=== PATIENT | female | born 1960 | race Two or more races ===

== ENCOUNTER 2019-09-20 11:14 | Inpatient (IN) ==
[2019-09-20] MEDS ORDERED: ASCORBIC ACID INJ MULTI-DOSE VIAL IM SCH (11:45)
[2019-09-20] MEDS ORDERED: NS 1000 ML 1,000 ML ONE (11:53)
[2019-09-20] MEDS ORDERED: THIAMINE HCL INJ IM SCH (12:00)
[2019-09-20] MEDS ORDERED: PLAQUENIL PO SCH (12:00)
[2019-09-20] MEDS ORDERED: XOPENEX 1.25 MG/3 ML NEBULE NEB ONE (12:07)
[2019-09-20] MEDS: XOPENEX 1.25 MG/3 ML NEBULE NEB SCH ×2 (12:15→17:05)
[2019-09-20] MEDS: NS 1000 ML 1,000 ML IV SCH (12:21)
[2019-09-20] MEDS ORDERED: REMDESIVIR (INVESTIGATIONAL DRUG GS-5734) 200 MG in NS 250 ML IV 250 ML IV NR (12:25)
[2019-09-20 12:26] LABS: BASOPHILS % (AUTO) 0.1 % (0.2-1.0); HEMATOCRIT 32.7 % (36.0-47.0); LYMPHOCYTES # (AUTO) 0.7 X10^3/uL (1.3-2.9); MEAN CORPUSCULAR HEMOGLOBIN 28.5 pg (27.0-34.0); MEAN CORPUSCULAR HGB CONC 33.6 g/dL (33.0-35.0); MEAN CORPUSCULAR VOLUME 84.7 fL (80.0-100.0); MEAN PLATELET VOLUME 7.6 fL (7.4-11.0); MONOCYTES # (AUTO) 0.5 x10^3/uL (0.3-0.8); MONOCYTES % (AUTO) 3.1 % (0.0-13.0); NEUTROPHILS # (AUTO) 15.3 x10^3/uL (2.2-4.8); NEUTROPHILS % (AUTO) 92.8 % (42.0-75.0); PLATELET COUNT 400 X10^3/uL (150.0-450.0); RED BLOOD COUNT 3.86 X10^6/uL (3.5-5.4); RED CELL DISTRIBUTION WIDTH 13.3 % (11.6-16.5); WHITE BLOOD COUNT 16.5 X10^3/uL (3.6-10.0)
[2019-09-20 12:37] LABS: ALBUMIN 2.6 g/dL (3.4-5.0); CALCIUM 9.2 mg/dL (8.5-10.1); CARBON DIOXIDE 27.5 mmol/L (21-32); COR CA(FOR HYPOALB) 10.3 mg/dL (8.5-10.1); CREATININE 1.76 mg/dL (0.55-1.02); TOTAL PROTEIN 7.9 g/dL (6.4-8.2); TROPONIN I 0.05 ng/mL (0-1.5)
[2019-09-20] MEDS ORDERED: TYLENOL 500 MG TAB EXTRA STRENGTH PO ONE (12:43)
[2019-09-20 12:54] LABS: BAND NEUTROPHILS % 4 % (0-10); PLATELET MORPHOLOGY COMMENT NORMAL (NORMAL)
[2019-09-20] MEDS ORDERED: CORTEF PO SCH (13:00)
[2019-09-20] MEDS ORDERED: LOVENOX INJ 30 MG SYR SC ONE (13:07)
[2019-09-20] MEDS ORDERED: NORVASC TAB 5 MG ONE (13:07)
[2019-09-20] MEDS ORDERED: ZESTRIL TAB 40 MG ONE (13:07)
[2019-09-20] MEDS ORDERED: THIAMINE HCL INJ ONE (13:08)
[2019-09-20] MEDS ORDERED: DECADRON TAB ONE (13:08)
[2019-09-20] MEDS ORDERED: HumuLIN R ONE (13:10)
[2019-09-20] MEDS: LOVENOX INJ 30 MG SYR SC SCH ×2 (13:11→20:17)
[2019-09-20] MEDS: VITAMIN A PO SCH (13:13)
[2019-09-20] MEDS: NORVASC TAB 5 MG PO SCH (13:13)
[2019-09-20] MEDS: ZESTRIL TAB 40 MG PO SCH (13:14)
[2019-09-20] MEDS: ZINC SULFATE PO SCH ×2 (13:14→20:37)
[2019-09-20] MEDS: DECADRON TAB PO SCH (13:15)
[2019-09-20] MEDS: HumuLIN R SUBCUT PRN ×2 (13:18→16:15)
[2019-09-20] MEDS ORDERED: TYLENOL 500 MG TAB EXTRA STRENGTH PO PRN (13:19)
--- NOTE | 2019-09-20 13:33 | RAD ---
HISTORYHYPOXIA, DYSPNEA, COVID 19+STUDYPA and lateral chestCOMPARISONNoneFINDINGSThere is limited inspiration. There is no pleural effusion. The heart size is normal. There is a mild infiltrate suggested in the right upper lobe. No significant bony abnormality is demonstrated.IMPRESSIONMild right upper lobe infiltrate that may represent a pneumonitis. Limited inspiration overall.Electronically signed by: PIETRO CONNELLY (Sep 20, 2019 13:31:37)
[2019-09-20 13:44] VITALS: BMI 29.1
[2019-09-20] MEDS: VITAMIN D (1.25MG) PO SCH (13:58)
[2019-09-20] MEDS ORDERED: ACTOS PO ONE (14:06)
[2019-09-20] MEDS: ACTOS PO SCH (14:10)
[2019-09-20] MEDS ORDERED: NS 100 ML IV 100 ML IV ONE ×2 (15:35→20:25)
[2019-09-20] MEDS: ASCORBIC ACID INJ MULTI-DOSE VIAL 1,500 MG in NS 100 ML IV 100 ML IV SCH ×2 (15:52→20:35)
[2019-09-20] MEDS ORDERED: GLUCOPHAGE ONE (16:11)
[2019-09-20] MEDS: GLUCOPHAGE PO SCH (16:14)
[2019-09-20] MEDS: SNACK - Diabetic Appropriate PO SCH (20:16)
[2019-09-20] MEDS: THIAMINE HCL INJ IV SCH (20:35)
[2019-09-21] MEDS ORDERED: ZOFRAN INJ 4 MG VIAL ONE (00:33)
[2019-09-21] MEDS ORDERED: ZOFRAN INJ 4 MG VIAL IVP PRN (00:34)
[2019-09-21] MEDS: XOPENEX 1.25 MG/3 ML NEBULE NEB SCH ×4 (00:44→17:20)
[2019-09-21] MEDS: HumuLIN R SUBCUT PRN ×4 (01:00→21:10)
[2019-09-21] MEDS: LOVENOX INJ 30 MG SYR SC SCH ×2 (02:10→08:55)
[2019-09-21] MEDS: ASCORBIC ACID INJ MULTI-DOSE VIAL 1,500 MG in NS 100 ML IV 100 ML IV SCH ×4 (03:00→21:50)
[2019-09-21 04:59] LABS: BASOPHILS % (AUTO) 0.2 % (0.2-1.0); HEMATOCRIT 30.1 % (36.0-47.0); HEMOGLOBIN 10.3 g/dL (12.0-16.0); LYMPHOCYTES # (AUTO) 0.7 X10^3/uL (1.3-2.9); LYMPHOCYTES % (AUTO) 6.6 % (21.0-51.0); MEAN CORPUSCULAR HEMOGLOBIN 28.9 pg (27.0-34.0); MEAN CORPUSCULAR HGB CONC 34.4 g/dL (33.0-35.0); MEAN PLATELET VOLUME 8.1 fL (7.4-11.0); MONOCYTES # (AUTO) 0.4 x10^3/uL (0.3-0.8); MONOCYTES % (AUTO) 3.3 % (0.0-13.0); NEUTROPHILS # (AUTO) 9.7 x10^3/uL (2.2-4.8); NEUTROPHILS % (AUTO) 89.9 % (42.0-75.0); PLATELET COUNT 387 X10^3/uL (150.0-450.0); RED BLOOD COUNT 3.58 X10^6/uL (3.5-5.4); RED CELL DISTRIBUTION WIDTH 13.5 % (11.6-16.5); WHITE BLOOD COUNT 10.8 X10^3/uL (3.6-10.0)
[2019-09-21 05:11] LABS: ALBUMIN 2.3 g/dL (3.4-5.0); CALCIUM 9.2 mg/dL (8.5-10.1); CARBON DIOXIDE 29.9 mmol/L (21-32); COR CA(FOR HYPOALB) 10.6 mg/dL (8.5-10.1); CREATININE 1.55 mg/dL (0.55-1.02); TOTAL PROTEIN 7.1 g/dL (6.4-8.2)
[2019-09-21] MEDS ORDERED: GLUCOPHAGE ONE ×2 (05:45→17:01)
[2019-09-21] MEDS ORDERED: HumuLIN R ONE (05:52)
[2019-09-21] MEDS: GLUCOPHAGE PO SCH ×2 (06:23→17:08)
[2019-09-21] MEDS ORDERED: NS 100 ML IV 100 ML IV ONE ×3 (07:09→21:24)
[2019-09-21] MEDS: ACTOS PO SCH (08:53)
[2019-09-21] MEDS: DECADRON TAB PO SCH (08:53)
[2019-09-21] MEDS: NORVASC TAB 5 MG PO SCH (08:55)
[2019-09-21] MEDS: REMDESIVIR (INVESTIGATIONAL DRUG GS-5734) 100 MG in NS 250 ML IV 250 ML IV SCH (08:56)
[2019-09-21] MEDS: ZINC SULFATE PO SCH ×2 (08:57→21:10)
[2019-09-21] MEDS: THIAMINE HCL INJ IV SCH ×2 (08:57→21:10)
[2019-09-21] MEDS: ZESTRIL TAB 40 MG PO SCH (08:57)
[2019-09-21] MEDS: VITAMIN D (1.25MG) PO SCH (08:59)
[2019-09-21] MEDS: VITAMIN A PO SCH (09:14)
[2019-09-21] MEDS: NS 1000 ML 1,000 ML IV SCH (12:10)
[2019-09-21] MEDS: SNACK - Diabetic Appropriate PO SCH (20:45)
[2019-09-22] MEDS: XOPENEX 1.25 MG/3 ML NEBULE NEB SCH ×4 (01:38→17:40)
[2019-09-22] MEDS ORDERED: NS 100 ML IV 100 ML IV ONE ×3 (03:22→11:17)
[2019-09-22] MEDS: ASCORBIC ACID INJ MULTI-DOSE VIAL 1,500 MG in NS 100 ML IV 100 ML IV SCH ×4 (03:50→21:00)
[2019-09-22] MEDS ORDERED: GLUCOPHAGE ONE ×2 (05:46→16:12)
[2019-09-22] MEDS: HumuLIN R SUBCUT PRN ×4 (06:00→21:00)
[2019-09-22] MEDS: GLUCOPHAGE PO SCH ×2 (06:04→17:34)
[2019-09-22] MEDS ORDERED: VITAMIN D3 25 mcg (1,000 UNITS) PO SCH (09:00)
[2019-09-22 09:12] LABS: BASOPHILS % (AUTO) 0.1 % (0.2-1.0); HEMATOCRIT 31.2 % (36.0-47.0); HEMOGLOBIN 10.6 g/dL (12.0-16.0); LYMPHOCYTES # (AUTO) 1.3 X10^3/uL (1.3-2.9); LYMPHOCYTES % (AUTO) 11.7 % (21.0-51.0); MEAN CORPUSCULAR HEMOGLOBIN 28.8 pg (27.0-34.0); MEAN CORPUSCULAR HGB CONC 34.1 g/dL (33.0-35.0); MEAN CORPUSCULAR VOLUME 84.3 fL (80.0-100.0); MEAN PLATELET VOLUME 7.5 fL (7.4-11.0); MONOCYTES # (AUTO) 0.8 x10^3/uL (0.3-0.8); MONOCYTES % (AUTO) 7.5 % (0.0-13.0); NEUTROPHILS # (AUTO) 9.1 x10^3/uL (2.2-4.8); NEUTROPHILS % (AUTO) 80.7 % (42.0-75.0); PLATELET COUNT 422 X10^3/uL (150.0-450.0); RED BLOOD COUNT 3.69 X10^6/uL (3.5-5.4); RED CELL DISTRIBUTION WIDTH 13.9 % (11.6-16.5); WHITE BLOOD COUNT 11.2 X10^3/uL (3.6-10.0)
[2019-09-22 09:25] LABS: ALBUMIN 2.3 g/dL (3.4-5.0); CALCIUM 9.6 mg/dL (8.5-10.1); CARBON DIOXIDE 29.6 mmol/L (21-32); CREATININE 1.34 mg/dL (0.55-1.02); TOTAL PROTEIN 7.1 g/dL (6.4-8.2)
[2019-09-22] MEDS: ACTOS PO SCH (09:43)
[2019-09-22] MEDS: DECADRON TAB PO SCH (09:44)
[2019-09-22] MEDS: VITAMIN A PO SCH (09:45)
[2019-09-22] MEDS: NORVASC TAB 5 MG PO SCH (09:45)
[2019-09-22] MEDS: REMDESIVIR (INVESTIGATIONAL DRUG GS-5734) 100 MG in NS 250 ML IV 250 ML IV SCH (09:45)
[2019-09-22] MEDS: THIAMINE HCL INJ IV SCH ×2 (09:45→21:00)
[2019-09-22] MEDS: LOVENOX INJ 30 MG SYR SC SCH ×2 (09:46→21:00)
[2019-09-22] MEDS: ZINC SULFATE PO SCH ×2 (09:46→21:00)
[2019-09-22] MEDS: ZESTRIL TAB 40 MG PO SCH (09:46)
[2019-09-22] MEDS: NS 1000 ML 1,000 ML IV SCH (13:53)
[2019-09-22] MEDS: SNACK - Diabetic Appropriate PO SCH ×2 (20:00→23:09)
[2019-09-23] MEDS: HumuLIN R SUBCUT PRN (00:35)
[2019-09-23] MEDS: XOPENEX 1.25 MG/3 ML NEBULE NEB SCH ×3 (01:12→11:56)
[2019-09-23] MEDS: ASCORBIC ACID INJ MULTI-DOSE VIAL 1,500 MG in NS 100 ML IV 100 ML IV SCH ×2 (03:00→09:39)
[2019-09-23 05:12] LABS: BASOPHILS % (AUTO) 0.5 % (0.2-1.0); HEMATOCRIT 28.8 % (36.0-47.0); HEMOGLOBIN 10.1 g/dL (12.0-16.0); LYMPHOCYTES # (AUTO) 1.3 X10^3/uL (1.3-2.9); LYMPHOCYTES % (AUTO) 12.7 % (21.0-51.0); MEAN CORPUSCULAR HEMOGLOBIN 29.8 pg (27.0-34.0); MEAN CORPUSCULAR HGB CONC 35.1 g/dL (33.0-35.0); MONOCYTES # (AUTO) 0.8 x10^3/uL (0.3-0.8); MONOCYTES % (AUTO) 7.2 % (0.0-13.0); NEUTROPHILS # (AUTO) 8.4 x10^3/uL (2.2-4.8); NEUTROPHILS % (AUTO) 79.6 % (42.0-75.0); PLATELET COUNT 474 X10^3/uL (150.0-450.0); RED BLOOD COUNT 3.39 X10^6/uL (3.5-5.4); RED CELL DISTRIBUTION WIDTH 14.1 % (11.6-16.5); WHITE BLOOD COUNT 10.6 X10^3/uL (3.6-10.0)
[2019-09-23] MEDS ORDERED: GLUCOPHAGE ONE (05:17)
[2019-09-23 06:22] LABS: ALANINE AMINOTRANSFERASE 11 Units/L (12-78); ALBUMIN 2.3 g/dL (3.4-5.0); ALKALINE PHOSPHATASE 49 Units/L (46-116); ASPARTATE AMINO TRANSFERASE 10 Units/L (15-37); BLOOD UREA NITROGEN 46 mg/dL (7-18); CALCIUM 9.5 mg/dL (8.5-10.1); CARBON DIOXIDE 28.5 mmol/L (21-32); CHLORIDE 99 mmol/L (98-107); COR CA(FOR HYPOALB) 10.9 mg/dL (8.5-10.1); CREATININE 1.18 mg/dL (0.55-1.02); SODIUM 137 mmol/L (136-145); TOTAL PROTEIN 6.6 g/dL (6.4-8.2); eGFR NON BLACK RACES 50 (>60)
[2019-09-23] MEDS ORDERED: VITAMIN D3 125 mcg (5,000 UNITS) PO SCH ×2 (09:00→11:00)
[2019-09-23] MEDS: ZINC SULFATE PO SCH (09:39)
[2019-09-23] MEDS: VITAMIN A PO SCH (09:40)
[2019-09-23] MEDS: ZESTRIL TAB 40 MG PO SCH (09:40)
[2019-09-23] MEDS: THIAMINE HCL INJ IV SCH (09:40)
[2019-09-23] MEDS: LOVENOX INJ 30 MG SYR SC SCH (09:41)
[2019-09-23] MEDS: NORVASC TAB 5 MG PO SCH (09:41)
[2019-09-23] MEDS: DECADRON TAB PO SCH (09:41)
[2019-09-23] MEDS: GLUCOPHAGE PO SCH (10:12)
[2019-09-23] MEDS: ACTOS PO SCH (10:13)
[2019-09-23] MEDS: REMDESIVIR (INVESTIGATIONAL DRUG GS-5734) 100 MG in NS 250 ML IV 250 ML IV SCH (10:15)
[2019-09-23 17:04] VITALS: BP 123/60
== END 2019-09-23 16:45 | disposition home or self-care (01) | DRG 177 ==
LOC: ICU → OBSVTOIN 11:23
PROVIDERS: ADMIT Obstetrics & Gynecology Obstetrics; ATTEND Obstetrics & Gynecology Obstetrics
CPT/HCPCS: 36415; 71020; 71046; 80053; 82947; 84484; 85025; 87070; 87205; 94640; A4222; J1650; J1815; J2405; J3411; J7030; J7050; J8540

== ENCOUNTER 2023-11-15 11:17 | Inpatient (IN) ==
--- NOTE | 2023-11-15 12:19 | DR.EXTPAIN ---
HPI Time seen Time Seen by Provider: 11/15/23 12:05 PCP Primary Care Physician: YASMINE Delgado Complaint/Symptoms Chief Complaint:: Son, Harjit, is translating for pt. Pt present with her rollator walker, is limping on right foot; pt c/o pain and swelling in right foot that started on , redness in right leg started on Wednesday. Initially only the top of right foot was red, redness has now spread up right leg to just below right knee. Pt states pain is 10/10 COVID-19 Coronavirus risk:travel/contact w/high risk person: No Has patient experienced Coronavirus symptoms: No Source History Provided: Patient and Family Member Mode of arrival Mode of Arrival: Ambulatory Timing Onset of Chief Complaint: 11/10/23 PMH PMH Past Medical History: Yes Past Medical History: Diabetes, Dyslipidemia, Hypertension and Renal Disease Past Surgical History: Yes Surgical History: and Hysterectomy Past Surgical History Comment: cataract Family History History of Family Medical Conditions: Yes Family Medical History: Diabetes Mellitus and Hypertension Social History Does patient currently use any type of tobacco product: No Have you used tobacco products in the last 12 months: No Type of Tobacco Use: None Does any household member use tobacco: No Alcohol Use: None Do you use any recreational Drugs:: No Lives With: Family Lives Where: Home Travel Risk Coronavirus risk:travel/contact w/high risk person: No Has patient experienced Coronavirus symptoms: No Infectious screening In the last 2 months have you had wt loss of >10#?: NO Have you had fever, night sweats or hemotysis?: No Have you traveled outside the country in the last 6 months?: No Isolation: Standard PE Vital Signs Vitals: Vital Signs Temperature 98.2 F Pulse Rate 68 Pulse Rate 66 Pulse Rate 66 Pulse Rate 65 Pulse Rate 66 Respiratory Rate 18 Respiratory Rate 18 Respiratory Rate 18 Blood Pressure 123/53 Blood Pressure 124/52 Blood Pressure 135/55 Blood Pressure 120/56 Blood Pressure 129/56 Blood Pressure 106/52 Blood Pressure 103/51 Blood Pressure 112/53 Blood Pressure 113/55 O2 Sat by Pulse Oximetry 94 O2 Sat by Pulse Oximetry 98 O2 Sat by Pulse Oximetry 99 O2 Sat by Pulse Oximetry 99 O2 Sat by Pulse Oximetry 98 ROR Labs Reviewed 11/15/23 12:30 11/15/23 12:30 Laboratory: WBC 11.2 X10^3/uL (3.6-10.0) H 11/15/23 12:30 RBC 2.93 X10^6/uL (3.5-5.4) L 11/15/23 12:30 Hgb 8.5 g/dL (12.0-16.0) L 11/15/23 12:30 Hct 25.6 % (36.0-47.0) L 11/15/23 12:30 MCV 87.4 fL (80.0-100.0) 11/15/23 12:30 MCH 28.9 pg (27.0-34.0) 11/15/23 12:30 MCHC 33.1 g/dL (33.0-35.0) 11/15/23 12:30 RDW 14.7 % (11.6-16.5) 11/15/23 12:30 Plt Count 256 X10^3/uL (150.0-450.0) 11/15/23 12:30 MPV 9.0 fL (7.4-11.0) 11/15/23 12:30 Neut % (Auto) 79.7 % (42.0-75.0) H 11/15/23 12:30 Lymph % (Auto) 10.3 % (21.0-51.0) L 11/15/23 12:30 [place] % (Auto) 9.2 % (0.0-13.0) 11/15/23 12:30 Eos % (Auto) 0.4 % (0.9-2.9) L 11/15/23 12:30 Baso % (Auto) 0.4 % (0.2-1.0) 11/15/23 12:30 Neut # (Auto) 8.9 x10^3/uL (2.2-4.8) H 11/15/23 12:30 Lymph # (Auto) 1.2 X10^3/uL (1.3-2.9) L 11/15/23 12:30 [place] # (Auto) 1.0 x10^3/uL (0.3-0.8) H 11/15/23 12:30 Eos # (Auto) 0.0 x10^3/uL (0.0-0.2) 11/15/23 12:30 Baso # (Auto) 0.0 X10^3/uL (0.0-0.1) 11/15/23 12:30 Absolute Nucleated RBC 0.0 /100WBC 11/15/23 12:30 Sodium 131 mmol/L (136-145) L 11/15/23 12:30 Corrected Sodium TNP 11/15/23 12:30 Potassium 4.2 mmol/L (3.5-5.1) 11/15/23 12:30 Chloride 96 mmol/L (98-107) L 11/15/23 12:30 Carbon Dioxide 27.9 mmol/L (21-32) 11/15/23 12:30 BUN 38 mg/dL (7-18) H 11/15/23 12:30 Creatinine 2.30 mg/dL (0.55-1.02) H 11/15/23 12:30 Est GFR (MDRD) Af Amer 28 (>60) L 11/15/23 12:30 Est GFR (MDRD) Non-Af 23 (>60) L 11/15/23 12:30 Glucose 103 mg/dL (65-99) H 11/15/23 12:30 Calcium 8.3 mg/dL (8.5-10.1) L 11/15/23 12:30 Corrected Calcium 9.6 mg/dL (8.5-10.1) 11/15/23 12:30 Total Bilirubin 0.50 mg/dL (0.2-1.0) 11/15/23 12:30 AST 20 Units/L (15-37) 11/15/23 12:30 ALT 15 Units/L (12-78) 11/15/23 12:30 Alkaline Phosphatase 138 Units/L (46-116) H 11/15/23 12:30 Total Protein 6.8 g/dL (6.4-8.2) 11/15/23 12:30 Albumin 2.4 g/dL (3.4-5.0) L 11/15/23 12:30 Globulin 4.4 g/dL (2.5-4.5) 11/15/23 12:30 Albumin/Globulin Ratio 0.5 Ratio (1.1-2.1) L 11/15/23 12:30 Opioid Opioid Risk Tool Age (Matteo box if 16-45): No History of Preadolescent Sexual Abuse: No Total: 0 Total Score Risk Category: Low Risk Copyright: Shan RODRIGUEZ predicting aberrant behaviors Discharge Plan Discharge Plan Patient Disposition: 01 HOME, SELF-CARE Condition: Stable Orders to Discharge Patient Discharge Orders: Transfer (Routine); Ordered 11/15/23 Ordered By: LAZARA BURGOS
[2023-11-15] MEDS: TORADOL 30 MG VIAL IVP ONE (12:33)
[2023-11-15 12:51] LABS: BASOPHILS % (AUTO) 0.4 % (0.2-1.0); EOSINOPHILS % (AUTO) 0.4 % (0.9-2.9); HEMATOCRIT 25.6 % (36.0-47.0); HEMOGLOBIN 8.5 g/dL (12.0-16.0); LYMPHOCYTES # (AUTO) 1.2 X10^3/uL (1.3-2.9); LYMPHOCYTES % (AUTO) 10.3 % (21.0-51.0); MEAN CORPUSCULAR HEMOGLOBIN 28.9 pg (27.0-34.0); MEAN CORPUSCULAR HGB CONC 33.1 g/dL (33.0-35.0); MEAN CORPUSCULAR VOLUME 87.4 fL (80.0-100.0); MONOCYTES % (AUTO) 9.2 % (0.0-13.0); NEUTROPHILS # (AUTO) 8.9 x10^3/uL (2.2-4.8); NEUTROPHILS % (AUTO) 79.7 % (42.0-75.0); PLATELET COUNT 256 X10^3/uL (150.0-450.0); RED BLOOD COUNT 2.93 X10^6/uL (3.5-5.4); RED CELL DISTRIBUTION WIDTH 14.7 % (11.6-16.5); WHITE BLOOD COUNT 11.2 X10^3/uL (3.6-10.0)
[2023-11-15 13:01] LABS: ALANINE AMINOTRANSFERASE 15 Units/L (12-78); ALBUMIN 2.4 g/dL (3.4-5.0); ALKALINE PHOSPHATASE 138 Units/L (46-116); ASPARTATE AMINO TRANSFERASE 20 Units/L (15-37); BLOOD UREA NITROGEN 38 mg/dL (7-18); CALCIUM 8.3 mg/dL (8.5-10.1); CARBON DIOXIDE 27.9 mmol/L (21-32); CHLORIDE 96 mmol/L (98-107); COR CA(FOR HYPOALB) 9.6 mg/dL (8.5-10.1); GLUCOSE 103 mg/dL (65-99); POTASSIUM 4.2 mmol/L (3.5-5.1); SODIUM 131 mmol/L (136-145); TOTAL PROTEIN 6.8 g/dL (6.4-8.2); eGFR NON BLACK RACES 23 (>60)
--- NOTE | 2023-11-15 13:30 | VAS ---
EXAM:LOWER EXT VENOUS, UNILATERALHISTORY:PAIN, SWELLING RLE; RT FOOT SWOLLEN/PAIN/DISCOLORATIONCOMPARISON:None.TECHNIQU E:Grayscale and color Doppler imaging of the right lower extremity using compression and augmentation techniques.FINDINGS:There is normal color Doppler flow demonstrated from the common femoral vein through of the popliteal vein of the right lower extremity. The deep vessels augment and compress normally. There is also flow within the right posterior tibial vein proximally. The more distal posterior tibial vein segments are suboptimally evaluated and incompletely imaged due to extensive lower extremity edema.Mildly enlarged right inguinal lymph nodes are demonstrated without hyperemic flow, possibly reactive in etiology.IMPRESSION:No evidence of DVT within the interrogated segments of the right lower extremity deep venous system. Please note that the more distal posterior tibial vein segments are suboptimally visualized due to generalized edema of the lower leg.Mildly enlarged right inguinal lymphadenopathy may be reactive in etiology. Attention to this finding on routine clinical follow-up is suggested to ensure stability or resolution.THIS IS AN ELECTRONICALLY VERIFIED FINAL REPORT11/15/2023 1:26 PM - Electronically signed by Faisal Quarles MD
[2023-11-15] MEDS: ZOFRAN INJ 4 MG VIAL IVP ONE (15:34)
[2023-11-15] MEDS: MORPHINE SULFATE INJ 4 MG IVP ONE (15:38)
[2023-11-15] MEDS: VANCOMYCIN IV *PREMIX 1 G/200 ML BAG 1 G/200 ML PIGGYBACK IV ONE (18:19)
[2023-11-15] MEDS ORDERED: MOTRIN TAB 600 MG PO PRN (19:05)
[2023-11-15] MEDS ORDERED: PHARMACY CONSULT - VANCOMYCIN XX SCH (19:05)
[2023-11-15] MEDS ORDERED: ZOFRAN TAB 4 MG PO PRN (19:05)
[2023-11-15 19:49] VITALS: BMI 34.0
[2023-11-15] MEDS: NS 1,000 ML IV 1,000 ML IV SCH (19:52)
[2023-11-15] MEDS: NORCO 5/325 MG TAB PO PRN (21:56)
[2023-11-15] MEDS: NovoLIN R (or HumuLIN R) SUBCUT PRN (21:56)
[2023-11-16 05:43] LABS: BASOPHILS % (AUTO) 0.3 % (0.2-1.0); EOSINOPHILS # (AUTO) 0.1 x10^3/uL (0.0-0.2); HEMATOCRIT 23.2 % (36.0-47.0); HEMOGLOBIN 7.8 g/dL (12.0-16.0); LYMPHOCYTES % (AUTO) 10.7 % (21.0-51.0); MEAN CORPUSCULAR HEMOGLOBIN 29.6 pg (27.0-34.0); MEAN CORPUSCULAR HGB CONC 33.4 g/dL (33.0-35.0); MEAN CORPUSCULAR VOLUME 88.5 fL (80.0-100.0); MEAN PLATELET VOLUME 8.9 fL (7.4-11.0); MONOCYTES # (AUTO) 0.8 x10^3/uL (0.3-0.8); MONOCYTES % (AUTO) 8.7 % (0.0-13.0); NEUTROPHILS # (AUTO) 7.6 x10^3/uL (2.2-4.8); NEUTROPHILS % (AUTO) 79.3 % (42.0-75.0); PLATELET COUNT 255 X10^3/uL (150.0-450.0); RED BLOOD COUNT 2.63 X10^6/uL (3.5-5.4); RED CELL DISTRIBUTION WIDTH 14.8 % (11.6-16.5); WHITE BLOOD COUNT 9.6 X10^3/uL (3.6-10.0)
[2023-11-16 05:54] LABS: CALCIUM 8.1 mg/dL (8.5-10.1); CARBON DIOXIDE 24.5 mmol/L (21-32); COR CA(FOR HYPOALB) 9.7 mg/dL (8.5-10.1); CREATININE 2.16 mg/dL (0.55-1.02); POTASSIUM 3.9 mmol/L (3.5-5.1); TOTAL PROTEIN 5.9 g/dL (6.4-8.2)
[2023-11-16] MEDS: VANCOMYCIN IV ONE (06:29)
[2023-11-16] MEDS ORDERED: VANCOMYCIN IV *PREMIX 1 G/200 ML BAG 1 G/200 ML PIGGYBACK IV SCH (09:00)
--- NOTE | 2023-11-16 10:22 | DR.H&P ---
H&P History & Physical for Day of: H&P Date: 11/16/23 Chief Complaint Chief Complaint: right leg pain and redness History of Present Illness History of Present Illness: Ms Crews is a 63y/o female with a PMH of CKD, DM, HTN and HLD presented with right leg pain, swelling and redness. She states this has been going on for over a week. She was seen in [place] and was told to go to the ER. She reports redness and pain in the lower leg which progressed to her knee. Er work up was negative for DVT, US showed edema. She was started on hydration and Vancomycin. She states pain and redness is slightly better today. She does have a hx of anemia requiring blood transfusion in the past. Denies any bleeding. She was admitted for further management. Labs/imaging reviewed: -WBC 9.6 Hgb 7.8 K 3.9 BUN/Cr:37/2.16 -US: (-) DVT Plan: keep leg elevated, continue IV vanc, add clindamycin. Continue hydration. Add morphine prn. resume home meds, hold nephrotoxic medications. Hold anti- hypertensives as patient's BP has been low. Monitor leg swelling and redness. Repeat H&H, order anemia panel. Replace electrolytes as needed. Monitor AM labs/imaging. Past Medical History Past Medical History: Diabetes, Dyslipidemia, Hypertension and Renal Disease Past Surgical History Surgical History: Family History Family Medical History: Diabetes Mellitus and Hypertension Social History Does patient currently use any type of tobacco product: No Have you used tobacco products in the last 12 months: No Type of Tobacco Use: None Does any household member use tobacco: No Alcohol Use: None Drug Use: None Medications Home Medications: Home Medications Medication Instructions Recorded Confirmed Type hydrochlorothiazide 12.5 mg tablet 12.5 mg PO DAILY 09/20/19 11/15/23 History pioglitazone 45 mg tablet 45 mg PO DAILY 09/20/19 11/15/23 History atorvastatin 40 mg tablet 40 mg PO QDAY 07/15/23 11/15/23 History dapagliflozin propanediol 10 mg 10 mg PO QDAY 07/15/23 11/15/23 History tablet (Farxiga) insulin detemir U-100 100 unit/mL 10 unit subcut QAM 07/15/23 11/15/23 History subcutaneous solution (Levemir U-100 Insulin) losartan 100 mg tablet 100 mg PO QDAY 07/15/23 11/15/23 History amlodipine 10 mg tablet 10 mg PO QDAY 11/15/23 11/15/23 History carvedilol 6.25 mg tablet 6.25 mg PO BID 11/15/23 11/15/23 History insulin detemir U-100 100 unit/mL 15 unit subcut QPM 11/15/23 11/15/23 History subcutaneous solution sitagliptin phosphate 50 mg tablet 50 mg PO QDAY 11/15/23 11/15/23 History ([place]) Allergies Allergies Allergy/AdvReac Type Severity Reaction Status Date / Time No Known Drug Allergies Allergy Verified 11/15/23 11:26 Labs 11/16/23 05:22 11/16/23 05:22 Labs: Laboratory WBC 9.6 X10^3/uL (3.6-10.0) 11/16/23 05:22 RBC 2.63 X10^6/uL (3.5-5.4) L 11/16/23 05:22 Hgb 7.8 g/dL (12.0-16.0) L 11/16/23 05:22 Hct 23.2 % (36.0-47.0) L 11/16/23 05:22 MCV 88.5 fL (80.0-100.0) 11/16/23 05:22 MCH 29.6 pg (27.0-34.0) 11/16/23 05:22 MCHC 33.4 g/dL (33.0-35.0) 11/16/23 05:22 RDW 14.8 % (11.6-16.5) 11/16/23 05:22 Plt Count 255 X10^3/uL (150.0-450.0) 11/16/23 05:22 MPV 8.9 fL (7.4-11.0) 11/16/23 05:22 Neut % (Auto) 79.3 % (42.0-75.0) H 11/16/23 05:22 Lymph % (Auto) 10.7 % (21.0-51.0) L 11/16/23 05:22 [place] % (Auto) 8.7 % (0.0-13.0) 11/16/23 05:22 Eos % (Auto) 1.0 % (0.9-2.9) 11/16/23 05:22 Baso % (Auto) 0.3 % (0.2-1.0) 11/16/23 05:22 Neut # (Auto) 7.6 x10^3/uL (2.2-4.8) H 11/16/23 05:22 Lymph # (Auto) 1.0 X10^3/uL (1.3-2.9) L 11/16/23 05:22 [place] # (Auto) 0.8 x10^3/uL (0.3-0.8) 11/16/23 05:22 Eos # (Auto) 0.1 x10^3/uL (0.0-0.2) 11/16/23 05:22 Baso # (Auto) 0.0 X10^3/uL (0.0-0.1) 11/16/23 05:22 Absolute Nucleated RBC 0.0 /100WBC 11/16/23 05:22 Sodium 131 mmol/L (136-145) L 11/16/23 05:22 Corrected Sodium 132 mmol/L (136-145) L 11/16/23 05:22 Potassium 3.9 mmol/L (3.5-5.1) 11/16/23 05:22 Chloride 98 mmol/L (98-107) 11/16/23 05:22 Carbon Dioxide 24.5 mmol/L (21-32) 11/16/23 05:22 BUN 37 mg/dL (7-18) H 11/16/23 05:22 Creatinine 2.16 mg/dL (0.55-1.02) H 11/16/23 05:22 Est GFR (MDRD) Af Amer 30 (>60) L 11/16/23 05:22 Est GFR (MDRD) Non-Af 25 (>60) L 11/16/23 05:22 Glucose 152 mg/dL (65-99) H 11/16/23 05:22 POC Glucose (mg/dL) 129 mg/dL (65-99) H 11/16/23 05:38 Calcium 8.1 mg/dL (8.5-10.1) L 11/16/23 05:22 Corrected Calcium 9.7 mg/dL (8.5-10.1) 11/16/23 05:22 Total Bilirubin 0.40 mg/dL (0.2-1.0) 11/16/23 05:22 AST 16 Units/L (15-37) 11/16/23 05:22 ALT 14 Units/L (12-78) 11/16/23 05:22 Alkaline Phosphatase 115 Units/L (46-116) 11/16/23 05:22 Total Protein 5.9 g/dL (6.4-8.2) L 11/16/23 05:22 Albumin 2.0 g/dL (3.4-5.0) L 11/16/23 05:22 Globulin 3.9 g/dL (2.5-4.5) 11/16/23 05:22 Albumin/Globulin Ratio 0.5 Ratio (1.1-2.1) L 11/16/23 05:22 Review of Systems Constitutional: Weakness Eyes: No Symptoms Reported Respiratory: No Symptoms Reported Cardiovascular: No Symptoms Reported Gastrointestinal: No Symptoms Reported Genitourinary: No Symptoms Reported Musculoskeletal: Leg Pain Skin: No Symptoms Reported Neurological: No Symptoms Reported Physical Exam Vital Signs: Vital Signs Temperature 98.4 F Temperature 97.7 F Pulse Rate [Radial] 69 Pulse Rate [Radial] 64 Respiratory Rate 18 Respiratory Rate 20 Respiratory Rate 20 Blood Pressure [Right Arm] 124/58 Blood Pressure [Right Arm] 103/51 O2 Sat by Pulse Oximetry 97 O2 Sat by Pulse Oximetry 97 Oriented: Normal Throat: Normal Respiratory: Clear Throughout Cardiovascular: Normal Auscultation: Bowel Sounds: Normal Palpation: Normal Tenderness: Normal Skin: Red and Hot Musculoskeletal: Right (warm, erythematous, tender, no drainage or open lesions noted.) and Leg Psychiatric: Normal Mood Description: Calm Affect: Normal Speech Pattern: Clear and Appropriate Review H&P Reviewed: Yes Patient was examined?: Yes
[2023-11-16 10:43] LABS: IRON 9 ug/dL (50-175); TOTAL IRON BINDING CAPACITY 146 ug/dL (250-450)
[2023-11-16] MEDS: CLEOCIN 600 MG IV PREMIX 600 MG/50 ML BAG IV SCH (11:19)
[2023-11-16] MEDS: LIPITOR TAB 40 MG PO SCH (11:19)
[2023-11-16 12:17] LABS: HEMATOCRIT 24.7 % (36.0-47.0); HEMOGLOBIN 8.2 g/dL (12.0-16.0)
[2023-11-16] MEDS: VANCOMYCIN IV *PREMIX 1.25 G/250 ML BAG 1.25 G/250 ML PIGGYBACK IV SCH (18:18)
[2023-11-16] MEDS: COREG TAB 6.25 MG PO SCH (20:54)
[2023-11-16] MEDS: LEVEMIR SC SCH (20:56)
[2023-11-16] MEDS: SNACK - Diabetic Appropriate PO SCH ×2 (22:44→22:45)
[2023-11-17] MEDS ORDERED: VANCOMYCIN IV *PREMIX 1.25 G/250 ML BAG 1.25 G/250 ML PIGGYBACK IV SCH (06:00)
[2023-11-17 06:13] LABS: BASOPHILS # (AUTO) 0.1 X10^3/uL (0.0-0.1); BASOPHILS % (AUTO) 0.7 % (0.2-1.0); EOSINOPHILS # (AUTO) 0.1 x10^3/uL (0.0-0.2); EOSINOPHILS % (AUTO) 0.9 % (0.9-2.9); HEMATOCRIT 23.7 % (36.0-47.0); HEMOGLOBIN 7.8 g/dL (12.0-16.0); LYMPHOCYTES # (AUTO) 1.4 X10^3/uL (1.3-2.9); LYMPHOCYTES % (AUTO) 14.3 % (21.0-51.0); MEAN CORPUSCULAR HEMOGLOBIN 29.1 pg (27.0-34.0); MEAN PLATELET VOLUME 8.9 fL (7.4-11.0); MONOCYTES # (AUTO) 0.9 x10^3/uL (0.3-0.8); MONOCYTES % (AUTO) 8.9 % (0.0-13.0); NEUTROPHILS # (AUTO) 7.6 x10^3/uL (2.2-4.8); NEUTROPHILS % (AUTO) 75.2 % (42.0-75.0); PLATELET COUNT 339 X10^3/uL (150.0-450.0); RED BLOOD COUNT 2.69 X10^6/uL (3.5-5.4); RED CELL DISTRIBUTION WIDTH 14.7 % (11.6-16.5); WHITE BLOOD COUNT 10.1 X10^3/uL (3.6-10.0)
[2023-11-17 06:27] LABS: ALBUMIN 1.9 g/dL (3.4-5.0); CALCIUM 8.2 mg/dL (8.5-10.1); CARBON DIOXIDE 22.7 mmol/L (21-32); COR CA(FOR HYPOALB) 9.9 mg/dL (8.5-10.1); CREATININE 1.99 mg/dL (0.55-1.02); POTASSIUM 3.9 mmol/L (3.5-5.1); TOTAL PROTEIN 6.3 g/dL (6.4-8.2)
[2023-11-17] MEDS: LEVEMIR SC SCH (08:37)
[2023-11-17] MEDS: VANCOMYCIN IV *PREMIX 1.5 G/300 ML BAG 1.5 G/300 ML PIGGYBACK IV SCH (09:03)
[2023-11-17] MEDS: MORPHINE SULFATE INJ 2 MG INJ IVP PRN (09:20)
[2023-11-17] MEDS ORDERED: NS 250 ML IV 25 ML IV PRN (09:32)
--- NOTE | 2023-11-17 10:32 | PCM.PROG ---
Progress Note Progress Note for Day of Date of Exam: 11/17/23 Subjective Subjective: Patient seen at bedside, no events overnight. She continues to have right leg pain and redness. Erythema appears to be similar to yesterday. She rates her pain 9/10 this morning. She states morphine does help. She has been afebrile. Her BP was slightly low this morning. Labs/imaging reviewed: -WBC 10.1 Hgb 7.8 BUN/Cr: 32/1.99 -Blood Cx pending Plan: Will add Zosyn, continue Clindamycin and Vancomycin. Get CT-LE stat. Continue pain control and hydration. Keep leg elevated. Will transfuse one unit blood. Monitor BP, hold anti-hypertensives for now. Continue other home meds, co ntinue insulin. Replace electrolytes as per protocol. Monitor AM labs/imaging. Past Medical Family Social History Allergies: Allergies No Known Drug Allergies Allergy (Verified 11/15/23 11:26) Vital Signs and I&O's Vital Signs: Vital Signs Temperature 99.0 F Temperature 98.6 F Pulse Rate [Radial] 61 Pulse Rate [Radial] 67 Respiratory Rate 17 Respiratory Rate 19 Respiratory Rate 18 Respiratory Rate 19 Respiratory Rate 18 Blood Pressure [Right Arm] 102/50 Blood Pressure [Right Arm] 106/53 O2 Sat by Pulse Oximetry 91 O2 Sat by Pulse Oximetry 96 Intake and Output: Intake & Output 11/14/23 11/15/23 11/16/23 11/17/23 23:59 23:59 23:59 23:59 Intake Total 523 / 523 3656 / 3656 803 / 803 Balance 523 / 523 3656 / 3656 803 / 803 Physical Exam Oriented: Normal Eyes: Normal Nose: Normal Throat: Normal Cardiovascular: Normal Auscultation: Bowel Sounds: Normal Palpation: Normal Tenderness: Normal Skin: Red and Hot Musculoskeletal: Right (warm, erythematous, tender, no drainage or open lesions noted.) and Leg Psychiatric: Normal Mood Description: Calm Affect: Normal Speech Pattern: Clear and Appropriate Laboratory and Diagnostics 11/17/23 05:57 11/17/23 05:57 Labs: Laboratory WBC 10.1 X10^3/uL (3.6-10.0) H 11/17/23 05:57 RBC 2.69 X10^6/uL (3.5-5.4) L 11/17/23 05:57 Hgb 7.8 g/dL (12.0-16.0) L 11/17/23 05:57 Hct 23.7 % (36.0-47.0) L 11/17/23 05:57 MCV 88.0 fL (80.0-100.0) 11/17/23 05:57 MCH 29.1 pg (27.0-34.0) 11/17/23 05:57 MCHC 33.0 g/dL (33.0-35.0) 11/17/23 05:57 RDW 14.7 % (11.6-16.5) 11/17/23 05:57 Plt Count 339 X10^3/uL (150.0-450.0) 11/17/23 05:57 MPV 8.9 fL (7.4-11.0) 11/17/23 05:57 Neut % (Auto) 75.2 % (42.0-75.0) H 11/17/23 05:57 Lymph % (Auto) 14.3 % (21.0-51.0) L 11/17/23 05:57 [place] % (Auto) 8.9 % (0.0-13.0) 11/17/23 05:57 Eos % (Auto) 0.9 % (0.9-2.9) 11/17/23 05:57 Baso % (Auto) 0.7 % (0.2-1.0) 11/17/23 05:57 Neut # (Auto) 7.6 x10^3/uL (2.2-4.8) H 11/17/23 05:57 Lymph # (Auto) 1.4 X10^3/uL (1.3-2.9) 11/17/23 05:57 [place] # (Auto) 0.9 x10^3/uL (0.3-0.8) H 11/17/23 05:57 Eos # (Auto) 0.1 x10^3/uL (0.0-0.2) 11/17/23 05:57 Baso # (Auto) 0.1 X10^3/uL (0.0-0.1) 11/17/23 05:57 Absolute Nucleated RBC 0.0 /100WBC 11/17/23 05:57 Sodium 131 mmol/L (136-145) L 11/17/23 05:57 Corrected Sodium 132 mmol/L (136-145) L 11/17/23 05:57 Potassium 3.9 mmol/L (3.5-5.1) 11/17/23 05:57 Chloride 98 mmol/L (98-107) 11/17/23 05:57 Carbon Dioxide 22.7 mmol/L (21-32) 11/17/23 05:57 BUN 32 mg/dL (7-18) H 11/17/23 05:57 Creatinine 1.99 mg/dL (0.55-1.02) H 11/17/23 05:57 Est GFR (MDRD) Af Amer 33 (>60) L 11/17/23 05:57 Est GFR (MDRD) Non-Af 27 (>60) L 11/17/23 05:57 Glucose 124 mg/dL (65-99) H 11/17/23 05:57 POC Glucose (mg/dL) 131 mg/dL (65-99) H 11/17/23 05:36 Calcium 8.2 mg/dL (8.5-10.1) L 11/17/23 05:57 Corrected Calcium 9.9 mg/dL (8.5-10.1) 11/17/23 05:57 Iron 9 ug/dL (50-175) L 11/16/23 05:22 TIBC 146 ug/dL (250-450) L 11/16/23 05:22 Ferritin 242 ng/mL (8-252) 11/16/23 05:22 Total Bilirubin 0.30 mg/dL (0.2-1.0) 11/17/23 05:57 AST 17 Units/L (15-37) 11/17/23 05:57 ALT 13 Units/L (12-78) 11/17/23 05:57 Alkaline Phosphatase 124 Units/L (46-116) H 11/17/23 05:57 Total Protein 6.3 g/dL (6.4-8.2) L 11/17/23 05:57 Albumin 1.9 g/dL (3.4-5.0) L 11/17/23 05:57 Globulin 4.4 g/dL (2.5-4.5) 11/17/23 05:57 Albumin/Globulin Ratio 0.4 Ratio (1.1-2.1) L 11/17/23 05:57 Vitamin B12 968 pg/mL (193-986) 11/16/23 05:22 Plan (1) Cellulitis of right leg: Status: Acute (2) Dehydration: Status: Acute (3) Acute kidney injury superimposed on CKD: Status: Acute (4) Diabetes: Status: Acute Qualifiers: Diabetes mellitus complication status: with hyperglycemia Diabetes mellitus residential insulin use: 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
[2023-11-17] MEDS: ZOSYN VIAL 3.375 GRAMS 3.375 G in NS 100 ML IV 100 ML IV SCH (10:50)
[2023-11-17] MEDS ORDERED: NS 500 ML IV 500 ML IV ONE (14:19)
[2023-11-17 18:38] LABS: HEMATOCRIT 26.8 % (36.0-47.0); HEMOGLOBIN 8.9 g/dL (12.0-16.0)
--- NOTE | 2023-11-17 22:09 | CT ---
EXAM: CT right lower extremity without contrast HISTORY: right leg redness, swelling, pain.; COMPARISON: Right lower extremity venous Doppler performed on 11/15/2023. TECHNIQUE: Noncontrast CT imaging was performed through the right lower extremity from the knee through the ankl e. Dose reduction techniques including Automated Exposure Control (AEC) and adjustment of mA and kV were utilized. FINDINGS: Bones: No acute fracture or aggressive appearing osseous lesion. No significant arthritis. Soft tissues: Moderate generalized edema without soft tissue gas or a fluid collection. IMPRESSION: Right lower extremity cellulitis without other acute findings. THIS IS AN ELECTRONICALLY VERIFIED FINAL REPORT 11/17/2023 10:05 PM - Electronically signed by Cesar [place] MD
[2023-11-18 06:19] LABS: BASOPHILS % (AUTO) 0.3 % (0.2-1.0); EOSINOPHILS # (AUTO) 0.1 x10^3/uL (0.0-0.2); EOSINOPHILS % (AUTO) 0.5 % (0.9-2.9); HEMATOCRIT 27.8 % (36.0-47.0); HEMOGLOBIN 9.2 g/dL (12.0-16.0); LYMPHOCYTES # (AUTO) 1.5 X10^3/uL (1.3-2.9); LYMPHOCYTES % (AUTO) 12.3 % (21.0-51.0); MEAN CORPUSCULAR HEMOGLOBIN 28.5 pg (27.0-34.0); MEAN CORPUSCULAR HGB CONC 33.1 g/dL (33.0-35.0); MEAN PLATELET VOLUME 8.4 fL (7.4-11.0); MONOCYTES % (AUTO) 8.7 % (0.0-13.0); NEUTROPHILS # (AUTO) 9.5 x10^3/uL (2.2-4.8); NEUTROPHILS % (AUTO) 78.2 % (42.0-75.0); PLATELET COUNT 393 X10^3/uL (150.0-450.0); RED BLOOD COUNT 3.23 X10^6/uL (3.5-5.4); RED CELL DISTRIBUTION WIDTH 15.2 % (11.6-16.5); WHITE BLOOD COUNT 12.1 X10^3/uL (3.6-10.0)
[2023-11-18 06:26] LABS: ALANINE AMINOTRANSFERASE 12 Units/L (12-78); ALBUMIN 1.9 g/dL (3.4-5.0); ALKALINE PHOSPHATASE 144 Units/L (46-116); ASPARTATE AMINO TRANSFERASE 18 Units/L (15-37); BLOOD UREA NITROGEN 26 mg/dL (7-18); CALCIUM 8.4 mg/dL (8.5-10.1); CARBON DIOXIDE 20.9 mmol/L (21-32); CHLORIDE 101 mmol/L (98-107); COR CA(FOR HYPOALB) 10.1 mg/dL (8.5-10.1); CREATININE 1.86 mg/dL (0.55-1.02); POTASSIUM 3.5 mmol/L (3.5-5.1); SODIUM 134 mmol/L (136-145); TOTAL PROTEIN 6.6 g/dL (6.4-8.2); eGFR NON BLACK RACES 29 (>60)
[2023-11-18 06:28] LABS: GLUCOSE 43 mg/dL (65-99)
[2023-11-18] MEDS: D50W ABBOJECT SYR IV ONE (06:42)
[2023-11-18] MEDS ORDERED: CONSULT PHARMACY - POTASSIUM & MAGNESIUM XX SCH (09:00)
[2023-11-18] MEDS: KLOR-CON 10 MEQ TAB PO NR (09:16)
[2023-11-18] MEDS ORDERED: CONSULT PHARMACY - INSULIN ADJUSTMENT NEEDED XX SCH (10:00)
[2023-11-18] MEDS ORDERED: PHARMACY COMMENT IV ONE ×2 (17:00→17:30)
--- NOTE | 2023-11-18 19:41 | PCM.PROG ---
Progress Note Progress Note for Day of Date of Exam: 11/18/23 Subjective Subjective: Patient resting in bed this morning. No acute events overnight. She does reports improvement in her symptoms compared to yesterday. She was able to put her leg down and edema has improved a little. Labs/imaging reviewed: -WBC 12.1, hemoglobin 9.2, platelets 393, sodium 134, potassium 3.5, creatinine 1.86, glucose 125 -CT of the lower extremity revealed cellulitis, no gas or fluid collection. -Blood Cx NGTD Plan: Continue IV antibiotics Zosyn, Clindamycin and Vancomycin. Continue pain control and hydration. Keep leg elevated. Monitor BP, hold anti-hypertensives for now. Continue other home meds, continue insulin. Replace electrolytes as per protocol. Monitor AM labs/imaging. Past Medical Family Social History Allergies: Allergies No Known Drug Allergies Allergy (Verified 11/15/23 11:26) Review of Systems ROS changes noted: see HPI Vital Signs and I&O's Vital Signs: Vital Signs Temperature 97.4 F Temperature 98.3 F Pulse Rate [Radial] 68 Pulse Rate [Radial] 65 Respiratory Rate 17 Respiratory Rate 18 Respiratory Rate 18 Respiratory Rate 18 Blood Pressure [Right Arm] 130/62 Blood Pressure [Right Arm] 128/60 O2 Sat by Pulse Oximetry 97 O2 Sat by Pulse Oximetry 97 Intake and Output: Intake & Output 11/15/23 11/16/23 11/17/23 11/18/23 23:59 23:59 23:59 23:59 Intake Total 523 / 523 3656 / 3656 1794 / 1794 1306 / 1306 Balance 523 / 523 3656 / 3656 1794 / 1794 1306 / 1306 Physical Exam Oriented: Normal Eyes: Normal Nose: Normal Throat: Normal Respiratory: Normal Cardiovascular: Normal Auscultation: Bowel Sounds: Normal Tenderness: Normal Skin: Red and Hot Musculoskeletal: Right (warm, erythematous, tender, no drainage or open lesions noted.) and Leg Psychiatric: Normal Mood Description: Calm Affect: Normal Speech Pattern: Clear and Appropriate Laboratory and Diagnostics 11/18/23 05:50 11/18/23 05:50 Labs: 11/15/23 12:40 Blood Blood Culture - Preliminary 11/15/23 12:30 Blood Blood Culture - Preliminary Laboratory WBC 12.1 X10^3/uL (3.6-10.0) H 11/18/23 05:50 RBC 3.23 X10^6/uL (3.5-5.4) L 11/18/23 05:50 Hgb 9.2 g/dL (12.0-16.0) L 11/18/23 05:50 Hct 27.8 % (36.0-47.0) L 11/18/23 05:50 MCV 86.0 fL (80.0-100.0) 11/18/23 05:50 MCH 28.5 pg (27.0-34.0) 11/18/23 05:50 MCHC 33.1 g/dL (33.0-35.0) 11/18/23 05:50 RDW 15.2 % (11.6-16.5) 11/18/23 05:50 Plt Count 393 X10^3/uL (150.0-450.0) 11/18/23 05:50 MPV 8.4 fL (7.4-11.0) 11/18/23 05:50 Neut % (Auto) 78.2 % (42.0-75.0) H 11/18/23 05:50 Lymph % (Auto) 12.3 % (21.0-51.0) L 11/18/23 05:50 [place] % (Auto) 8.7 % (0.0-13.0) 11/18/23 05:50 Eos % (Auto) 0.5 % (0.9-2.9) L 11/18/23 05:50 Baso % (Auto) 0.3 % (0.2-1.0) 11/18/23 05:50 Neut # (Auto) 9.5 x10^3/uL (2.2-4.8) H 11/18/23 05:50 Lymph # (Auto) 1.5 X10^3/uL (1.3-2.9) 11/18/23 05:50 [place] # (Auto) 1.0 x10^3/uL (0.3-0.8) H 11/18/23 05:50 Eos # (Auto) 0.1 x10^3/uL (0.0-0.2) 11/18/23 05:50 Baso # (Auto) 0.0 X10^3/uL (0.0-0.1) 11/18/23 05:50 Absolute Nucleated RBC 0.2 /100WBC 11/18/23 05:50 Sodium 134 mmol/L (136-145) L 11/18/23 05:50 Corrected Sodium TNP 11/18/23 05:50 Potassium 3.5 mmol/L (3.5-5.1) 11/18/23 05:50 Chloride 101 mmol/L (98-107) 11/18/23 05:50 Carbon Dioxide 20.9 mmol/L (21-32) L 11/18/23 05:50 BUN 26 mg/dL (7-18) H 11/18/23 05:50 Creatinine 1.86 mg/dL (0.55-1.02) H 11/18/23 05:50 Est GFR (MDRD) Af Amer 35 (>60) L 11/18/23 05:50 Est GFR (MDRD) Non-Af 29 (>60) L 11/18/23 05:50 Glucose 43 mg/dL (65-99) L* 11/18/23 05:50 POC Glucose (mg/dL) 160 mg/dL (65-99) H 11/18/23 16:50 Calcium 8.4 mg/dL (8.5-10.1) L 11/18/23 05:50 Corrected Calcium 10.1 mg/dL (8.5-10.1) 11/18/23 05:50 Magnesium 1.6 mg/dL (2.0-2.9) L 11/18/23 05:50 Iron 9 ug/dL (50-175) L 11/16/23 05:22 TIBC 146 ug/dL (250-450) L 11/16/23 05:22 Ferritin 242 ng/mL (8-252) 11/16/23 05:22 Total Bilirubin 0.50 mg/dL (0.2-1.0) 11/18/23 05:50 AST 18 Units/L (15-37) 11/18/23 05:50 ALT 12 Units/L (12-78) 11/18/23 05:50 Alkaline Phosphatase 144 Units/L (46-116) H 11/18/23 05:50 Total Protein 6.6 g/dL (6.4-8.2) 11/18/23 05:50 Albumin 1.9 g/dL (3.4-5.0) L 11/18/23 05:50 Globulin 4.7 g/dL (2.5-4.5) H 11/18/23 05:50 Albumin/Globulin Ratio 0.4 Ratio (1.1-2.1) L 11/18/23 05:50 Vitamin B12 968 pg/mL (193-986) 11/16/23 05:22 Blood Type B POSITIVE 11/17/23 10:59 Antibody Screen Negative 11/17/23 10:59 Crossmatch See Detail 11/17/23 10:59 Plan (1) Cellulitis of right leg: Status: Acute (2) Dehydration: Status: Acute (3) Acute kidney injury superimposed on CKD: Status: Acute (4) Diabetes: Status: Acute Qualifiers: Diabetes mellitus type: type 2 Diabetes mellitus residential insulin use: with residential use Diabetes mellitus complication status: with hyperglycemia Qualified Code(s): E11.65 - Type 2 diabetes mellitus with hyperglycemia; 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
[2023-11-19 06:26] LABS: ALBUMIN 1.8 g/dL (3.4-5.0); CALCIUM 8.5 mg/dL (8.5-10.1); CARBON DIOXIDE 22.2 mmol/L (21-32); COR CA(FOR HYPOALB) 10.3 mg/dL (8.5-10.1); CREATININE 1.8 mg/dL (0.55-1.02); MAGNESIUM 1.6 mg/dL (2.0-2.9); POTASSIUM 4.3 mmol/L (3.5-5.1); TOTAL PROTEIN 6.4 g/dL (6.4-8.2)
[2023-11-19 06:28] LABS: BASOPHILS % (AUTO) 0.4 % (0.2-1.0); EOSINOPHILS # (AUTO) 0.1 x10^3/uL (0.0-0.2); EOSINOPHILS % (AUTO) 1.1 % (0.9-2.9); HEMATOCRIT 26.2 % (36.0-47.0); HEMOGLOBIN 8.7 g/dL (12.0-16.0); LYMPHOCYTES # (AUTO) 1.3 X10^3/uL (1.3-2.9); LYMPHOCYTES % (AUTO) 11.2 % (21.0-51.0); MEAN CORPUSCULAR HEMOGLOBIN 28.8 pg (27.0-34.0); MEAN CORPUSCULAR HGB CONC 33.1 g/dL (33.0-35.0); MEAN CORPUSCULAR VOLUME 87.2 fL (80.0-100.0); MEAN PLATELET VOLUME 8.2 fL (7.4-11.0); MONOCYTES # (AUTO) 0.9 x10^3/uL (0.3-0.8); MONOCYTES % (AUTO) 8.2 % (0.0-13.0); NEUTROPHILS # (AUTO) 8.9 x10^3/uL (2.2-4.8); NEUTROPHILS % (AUTO) 79.1 % (42.0-75.0); PLATELET COUNT 402 X10^3/uL (150.0-450.0); RED BLOOD COUNT 3.01 X10^6/uL (3.5-5.4); RED CELL DISTRIBUTION WIDTH 15.4 % (11.6-16.5); WHITE BLOOD COUNT 11.3 X10^3/uL (3.6-10.0)
[2023-11-19] MEDS: LOVENOX INJ 30 MG SYR SC SCH (11:38)
[2023-11-19] MEDS: COLACE CAP 100 MG PO SCH (11:38)
[2023-11-19] MEDS: MILK OF MAGNESIA PO SCH (11:38)
[2023-11-19] MEDS: NORCO 5/325 MG TAB PO PRN (19:43)
[2023-11-20 05:17] LABS: BASOPHILS % (AUTO) 0.4 % (0.2-1.0); EOSINOPHILS # (AUTO) 0.1 x10^3/uL (0.0-0.2); EOSINOPHILS % (AUTO) 1.1 % (0.9-2.9); HEMOGLOBIN 8.6 g/dL (12.0-16.0); LYMPHOCYTES # (AUTO) 1.2 X10^3/uL (1.3-2.9); LYMPHOCYTES % (AUTO) 10.9 % (21.0-51.0); MEAN CORPUSCULAR HEMOGLOBIN 28.9 pg (27.0-34.0); MEAN CORPUSCULAR HGB CONC 33.2 g/dL (33.0-35.0); MEAN PLATELET VOLUME 7.8 fL (7.4-11.0); MONOCYTES # (AUTO) 0.9 x10^3/uL (0.3-0.8); MONOCYTES % (AUTO) 8.1 % (0.0-13.0); NEUTROPHILS # (AUTO) 8.8 x10^3/uL (2.2-4.8); NEUTROPHILS % (AUTO) 79.5 % (42.0-75.0); PLATELET COUNT 442 X10^3/uL (150.0-450.0); RED BLOOD COUNT 2.99 X10^6/uL (3.5-5.4); RED CELL DISTRIBUTION WIDTH 15.7 % (11.6-16.5); WHITE BLOOD COUNT 11.1 X10^3/uL (3.6-10.0)
[2023-11-20 05:20] LABS: ALANINE AMINOTRANSFERASE 9 Units/L (12-78); ALBUMIN 1.8 g/dL (3.4-5.0); ALKALINE PHOSPHATASE 123 Units/L (46-116); ASPARTATE AMINO TRANSFERASE 14 Units/L (15-37); BLOOD UREA NITROGEN 18 mg/dL (7-18); CALCIUM 8.3 mg/dL (8.5-10.1); CARBON DIOXIDE 23.1 mmol/L (21-32); CHLORIDE 103 mmol/L (98-107); COR CA(FOR HYPOALB) 10.1 mg/dL (8.5-10.1); CREATININE 1.68 mg/dL (0.55-1.02); GLUCOSE 78 mg/dL (65-99); MAGNESIUM 1.8 mg/dL (2.0-2.9); POTASSIUM 4.3 mmol/L (3.5-5.1); SODIUM 137 mmol/L (136-145); TOTAL PROTEIN 6.3 g/dL (6.4-8.2); eGFR NON BLACK RACES 33 (>60)
[2023-11-20] MEDS ORDERED: CONSULT PHARMACY - POTASSIUM & MAGNESIUM XX SCH (07:00)
--- NOTE | 2023-11-20 08:12 | PCM.PROG ---
Progress Note Progress Note for Day of Date of Exam: 11/19/23 Subjective Subjective: This morning patient is resting in bed. No acute events overnight. Her symptoms continue to improve and swelling has decreased since yesterday. Encouraged patient to ambulate more today. Labs/imaging reviewed: -WBC 11.3, hemoglobin 8.7, platelets 402, sodium 134, potassium 4.3, creatinine 1.80, glucose 131 -CT of the lower extremity revealed cellulitis, no gas or fluid collection. -Blood Cx NGTD Plan: Continue IV antibiotics Zosyn, Clindamycin and Vancomycin. Continue pain control and hydration. Keep leg elevated. Monitor BP, hold anti-hypertensives for now. Continue other home meds, continue insulin. Replace electrolytes as per protocol. Monitor AM labs/imaging. Past Medical Family Social History Allergies: Allergies No Known Drug Allergies Allergy (Verified 11/15/23 11:26) Review of Systems ROS changes noted: see HPI Vital Signs and I&O's Vital Signs: Vital Signs Temperature 97.4 F Temperature 98.6 F Temperature 98.6 F Pulse Rate [Radial] 64 Pulse Rate [Radial] 65 Pulse Rate [Radial] 65 Respiratory Rate 19 Respiratory Rate 18 Respiratory Rate 18 Blood Pressure [Right Arm] 125/61 Blood Pressure [Right Arm] 144/67 O2 Sat by Pulse Oximetry 92 O2 Sat by Pulse Oximetry 96 O2 Sat by Pulse Oximetry 96 Intake and Output: Intake & Output 11/17/23 11/18/23 11/19/23 11/20/23 23:59 23:59 23:59 23:59 Intake Total 1794 / 1794 3650 / 3650 2252 / 2252 560 / 560 Balance 1794 / 1794 3650 / 3650 2252 / 2252 560 / 560 Physical Exam Oriented: Normal Eyes: Normal Nose: Normal Throat: Normal Respiratory: Normal Cardiovascular: Normal Auscultation: Bowel Sounds: Normal Tenderness: Normal Skin: Red and Hot Musculoskeletal: Right (warm, erythematous, tender, no drainage or open lesions noted.) and Leg Psychiatric: Normal Mood Description: Calm Affect: Normal Speech Pattern: Clear and Appropriate Laboratory and Diagnostics 11/20/23 04:40 11/20/23 04:40 Labs: 11/15/23 12:40 Blood Blood Culture - Preliminary 11/15/23 12:30 Blood Blood Culture - Preliminary Laboratory WBC 11.1 X10^3/uL (3.6-10.0) H 11/20/23 04:40 RBC 2.99 X10^6/uL (3.5-5.4) L 11/20/23 04:40 Hgb 8.6 g/dL (12.0-16.0) L 11/20/23 04:40 Hct 26.0 % (36.0-47.0) L 11/20/23 04:40 MCV 87.0 fL (80.0-100.0) 11/20/23 04:40 MCH 28.9 pg (27.0-34.0) 11/20/23 04:40 MCHC 33.2 g/dL (33.0-35.0) 11/20/23 04:40 RDW 15.7 % (11.6-16.5) 11/20/23 04:40 Plt Count 442 X10^3/uL (150.0-450.0) 11/20/23 04:40 MPV 7.8 fL (7.4-11.0) 11/20/23 04:40 Neut % (Auto) 79.5 % (42.0-75.0) H 11/20/23 04:40 Lymph % (Auto) 10.9 % (21.0-51.0) L 11/20/23 04:40 [place] % (Auto) 8.1 % (0.0-13.0) 11/20/23 04:40 Eos % (Auto) 1.1 % (0.9-2.9) 11/20/23 04:40 Baso % (Auto) 0.4 % (0.2-1.0) 11/20/23 04:40 Neut # (Auto) 8.8 x10^3/uL (2.2-4.8) H 11/20/23 04:40 Lymph # (Auto) 1.2 X10^3/uL (1.3-2.9) L 11/20/23 04:40 [place] # (Auto) 0.9 x10^3/uL (0.3-0.8) H 11/20/23 04:40 Eos # (Auto) 0.1 x10^3/uL (0.0-0.2) 11/20/23 04:40 Baso # (Auto) 0.0 X10^3/uL (0.0-0.1) 11/20/23 04:40 Absolute Nucleated RBC 0.0 /100WBC 11/20/23 04:40 Sodium 137 mmol/L (136-145) 11/20/23 04:40 Corrected Sodium TNP 11/20/23 04:40 Potassium 4.3 mmol/L (3.5-5.1) 11/20/23 04:40 Chloride 103 mmol/L (98-107) 11/20/23 04:40 Carbon Dioxide 23.1 mmol/L (21-32) 11/20/23 04:40 BUN 18 mg/dL (7-18) 11/20/23 04:40 Creatinine 1.68 mg/dL (0.55-1.02) H 11/20/23 04:40 Est GFR (MDRD) Af Amer 40 (>60) L 11/20/23 04:40 Est GFR (MDRD) Non-Af 33 (>60) L 11/20/23 04:40 Glucose 78 mg/dL (65-99) 11/20/23 04:40 POC Glucose (mg/dL) 71 mg/dL (65-99) 11/20/23 05:12 Calcium 8.3 mg/dL (8.5-10.1) L 11/20/23 04:40 Corrected Calcium 10.1 mg/dL (8.5-10.1) 11/20/23 04:40 Magnesium 1.8 mg/dL (2.0-2.9) L 11/20/23 04:40 Iron 9 ug/dL (50-175) L 11/16/23 05:22 TIBC 146 ug/dL (250-450) L 11/16/23 05:22 Ferritin 242 ng/mL (8-252) 11/16/23 05:22 Total Bilirubin 0.40 mg/dL (0.2-1.0) 11/20/23 04:40 AST 14 Units/L (15-37) L 11/20/23 04:40 ALT 9 Units/L (12-78) L 11/20/23 04:40 Alkaline Phosphatase 123 Units/L (46-116) H 11/20/23 04:40 Total Protein 6.3 g/dL (6.4-8.2) L 11/20/23 04:40 Albumin 1.8 g/dL (3.4-5.0) L 11/20/23 04:40 Globulin 4.5 g/dL (2.5-4.5) 11/20/23 04:40 Albumin/Globulin Ratio 0.4 Ratio (1.1-2.1) L 11/20/23 04:40 Vitamin B12 968 pg/mL (193-986) 11/16/23 05:22 Blood Type B POSITIVE 11/17/23 10:59 Antibody Screen Negative 11/17/23 10:59 Crossmatch See Detail 11/17/23 10:59 Plan (1) Cellulitis of right leg: Status: Acute (2) Dehydration: Status: Acute (3) Acute kidney injury superimposed on CKD: Status: Acute (4) Diabetes: Status: Acute Qualifiers: Diabetes mellitus type: type 2 Diabetes mellitus longitudinal float operator insulin use: with jail use Diabetes mellitus complication status: with hyperglycemia Qualified Code(s): E11.65 - Type 2 diabetes mellitus with hyperglycemia; Z79.4 - terminal operations supervisor (current) use of insulin (5) HTN (hypertension): Status: Acute Qualifiers: Hypertension type: primary hypertension Qualified Code(s): I10 - Essential (primary) hypertension (6) Anemia of chronic disease: Status: Acute
[2023-11-20] MEDS: PHARMACY COMMENT IV NR (08:37)
[2023-11-20 09:37] LABS: CREATININE 1.64 mg/dL (0.55-1.02)
[2023-11-20 09:39] LABS: VANCOMYCIN,TROUGH 28.8 ug/mL (15-20)
[2023-11-20] MEDS: MAG-OX TAB PO SCH (09:54)
[2023-11-20] MEDS: D50W ABBOJECT SYR ONE (10:10)
[2023-11-20] MEDS: VSL#3 PROBIOTIC CAP 112.5 B PO SCH (11:41)
[2023-11-20] MEDS: TYLENOL 325 MG TAB PO PRN (19:49)
[2023-11-21 05:30] LABS: BASOPHILS # (AUTO) 0.1 X10^3/uL (0.0-0.1); BASOPHILS % (AUTO) 0.6 % (0.2-1.0); EOSINOPHILS # (AUTO) 0.1 x10^3/uL (0.0-0.2); HEMATOCRIT 26.6 % (36.0-47.0); HEMOGLOBIN 8.9 g/dL (12.0-16.0); LYMPHOCYTES # (AUTO) 1.1 X10^3/uL (1.3-2.9); LYMPHOCYTES % (AUTO) 11.1 % (21.0-51.0); MEAN CORPUSCULAR HEMOGLOBIN 29.1 pg (27.0-34.0); MEAN CORPUSCULAR HGB CONC 33.5 g/dL (33.0-35.0); MEAN CORPUSCULAR VOLUME 86.7 fL (80.0-100.0); MEAN PLATELET VOLUME 7.5 fL (7.4-11.0); MONOCYTES # (AUTO) 0.9 x10^3/uL (0.3-0.8); MONOCYTES % (AUTO) 8.9 % (0.0-13.0); NEUTROPHILS # (AUTO) 7.7 x10^3/uL (2.2-4.8); NEUTROPHILS % (AUTO) 78.4 % (42.0-75.0); PLATELET COUNT 468 X10^3/uL (150.0-450.0); RED BLOOD COUNT 3.07 X10^6/uL (3.5-5.4); RED CELL DISTRIBUTION WIDTH 15.5 % (11.6-16.5); WHITE BLOOD COUNT 9.8 X10^3/uL (3.6-10.0)
[2023-11-21 05:35] LABS: ALANINE AMINOTRANSFERASE 10 Units/L (12-78); ALBUMIN 1.9 g/dL (3.4-5.0); ALKALINE PHOSPHATASE 125 Units/L (46-116); ASPARTATE AMINO TRANSFERASE 12 Units/L (15-37); BLOOD UREA NITROGEN 16 mg/dL (7-18); CALCIUM 8.5 mg/dL (8.5-10.1); CARBON DIOXIDE 24.1 mmol/L (21-32); CHLORIDE 103 mmol/L (98-107); COR CA(FOR HYPOALB) 10.2 mg/dL (8.5-10.1); CREATININE 1.63 mg/dL (0.55-1.02); GLUCOSE 85 mg/dL (65-99); MAGNESIUM 1.9 mg/dL (2.0-2.9); POTASSIUM 4.6 mmol/L (3.5-5.1); SODIUM 137 mmol/L (136-145); TOTAL PROTEIN 6.8 g/dL (6.4-8.2); eGFR NON BLACK RACES 34 (>60)
[2023-11-21 05:51] LABS: VANCOMYCIN,TROUGH 21.1 ug/mL (15-20)
[2023-11-21] MEDS: PHARMACY COMMENT IV NR (05:52)
[2023-11-21] MEDS: NEURONTIN CAP 100 MG PO SCH (08:54)
[2023-11-21] MEDS: NEURONTIN CAP 100 MG ONE (10:17)
[2023-11-21] MEDS ORDERED: CONSULT PHARMACY - POTASSIUM & MAGNESIUM XX SCH (13:00)
[2023-11-21] MEDS: MAG-OX TAB PO ONE (14:13)
--- NOTE | 2023-11-21 19:19 | CT ---
EXAM:LOWER EXT W/OHISTORY:cellulitis right lower extremity, extends from the top front of the tib/fib through the ankle joint;COMPARISON:11/09/2023 CTTECHNIQUE:Multiple CT axial images of the right lower extremity were obtained without administration of IV contrast. Sagittal and coronal reformats were performed and reviewed. Dose reduction techniques including Automated Exposure Control (AEC) and adjustment of mA and kV were utilized.FINDINGS:Diffuse subcutaneous edema extends along the length of the right leg and also evident at the lateral aspect of the distal thigh and extending into the foot primarily at the dorsum and medial aspect of the foot. No subcutaneous gas. No focal collection can be identified on this noncontrast study. Severe atrophy of the right extensor hallucis longus and extensor digitorum longus tendons are noted and severe atrophy of the peroneus brevis and longus muscles and the posterior tibialis, flexor hallucis longus and flexor digitorum longus muscles incidentally in the field of view. Gastrocnemius and soleus muscles appear unremarkable and tibialis anterior appears unremarkable. There are phleboliths calcifications anterior aspect of the leg. Bones are unremarkable, no osseous destruction. No visible soft tissue ulceration site. No fracture.IMPRESSION:Diffuse lower extremity subcutaneous edema in the visualized leg and foot which may represent cellulitis in the appropriate setting but no focal collection, no subcutaneous gas no findings to suggest osteomyelitis. Compared with previous CT, no significant interval change appreciated..THIS IS AN ELECTRONICALLY VERIFIED FINAL REPORT11/21/2023 7:16 PM - Electronically signed by Bob Balderas MD
[2023-11-22 05:29] LABS: BASOPHILS % (AUTO) 0.3 % (0.2-1.0); EOSINOPHILS # (AUTO) 0.1 x10^3/uL (0.0-0.2); EOSINOPHILS % (AUTO) 0.8 % (0.9-2.9); HEMATOCRIT 25.4 % (36.0-47.0); HEMOGLOBIN 8.5 g/dL (12.0-16.0); LYMPHOCYTES # (AUTO) 1.2 X10^3/uL (1.3-2.9); LYMPHOCYTES % (AUTO) 12.9 % (21.0-51.0); MEAN CORPUSCULAR HEMOGLOBIN 28.9 pg (27.0-34.0); MEAN CORPUSCULAR HGB CONC 33.2 g/dL (33.0-35.0); MEAN PLATELET VOLUME 7.5 fL (7.4-11.0); MONOCYTES # (AUTO) 0.8 x10^3/uL (0.3-0.8); MONOCYTES % (AUTO) 8.4 % (0.0-13.0); NEUTROPHILS % (AUTO) 77.6 % (42.0-75.0); PLATELET COUNT 470 X10^3/uL (150.0-450.0); RED BLOOD COUNT 2.92 X10^6/uL (3.5-5.4); RED CELL DISTRIBUTION WIDTH 15.6 % (11.6-16.5); WHITE BLOOD COUNT 9.1 X10^3/uL (3.6-10.0)
[2023-11-22 05:39] LABS: ALBUMIN 1.9 g/dL (3.4-5.0); CALCIUM 8.5 mg/dL (8.5-10.1); CARBON DIOXIDE 23.3 mmol/L (21-32); COR CA(FOR HYPOALB) 10.2 mg/dL (8.5-10.1); CREATININE 1.49 mg/dL (0.55-1.02); MAGNESIUM 1.8 mg/dL (2.0-2.9); POTASSIUM 4.5 mmol/L (3.5-5.1); TOTAL PROTEIN 6.8 g/dL (6.4-8.2)
[2023-11-22] MEDS ORDERED: CONSULT PHARMACY - POTASSIUM & MAGNESIUM XX SCH (07:00)
[2023-11-22] MEDS: MAG-OX TAB PO SCH (10:03)
[2023-11-22] MEDS ORDERED: PHARMACY CONSULT - VANCOMYCIN XX SCH (16:00)
[2023-11-22] MEDS: VANCOMYCIN IV *PREMIX 1.5 G/300 ML BAG 1.5 G/300 ML PIGGYBACK IV SCH (19:14)
[2023-11-23 06:19] LABS: BASOPHILS # (AUTO) 0.1 X10^3/uL (0.0-0.1); BASOPHILS % (AUTO) 0.5 % (0.2-1.0); EOSINOPHILS # (AUTO) 0.1 x10^3/uL (0.0-0.2); EOSINOPHILS % (AUTO) 1.4 % (0.9-2.9); HEMATOCRIT 25.1 % (36.0-47.0); HEMOGLOBIN 8.4 g/dL (12.0-16.0); LYMPHOCYTES # (AUTO) 1.3 X10^3/uL (1.3-2.9); LYMPHOCYTES % (AUTO) 12.7 % (21.0-51.0); MEAN CORPUSCULAR HEMOGLOBIN 29.2 pg (27.0-34.0); MEAN CORPUSCULAR HGB CONC 33.6 g/dL (33.0-35.0); MEAN CORPUSCULAR VOLUME 86.8 fL (80.0-100.0); MEAN PLATELET VOLUME 7.6 fL (7.4-11.0); MONOCYTES # (AUTO) 0.9 x10^3/uL (0.3-0.8); NEUTROPHILS # (AUTO) 7.8 x10^3/uL (2.2-4.8); NEUTROPHILS % (AUTO) 76.4 % (42.0-75.0); PLATELET COUNT 467 X10^3/uL (150.0-450.0); RED BLOOD COUNT 2.89 X10^6/uL (3.5-5.4); RED CELL DISTRIBUTION WIDTH 15.3 % (11.6-16.5); WHITE BLOOD COUNT 10.1 X10^3/uL (3.6-10.0)
[2023-11-23 06:21] LABS: ALBUMIN 1.9 g/dL (3.4-5.0); CALCIUM 8.3 mg/dL (8.5-10.1); CARBON DIOXIDE 25.7 mmol/L (21-32); CREATININE 1.42 mg/dL (0.55-1.02); MAGNESIUM 1.8 mg/dL (2.0-2.9); POTASSIUM 4.3 mmol/L (3.5-5.1); TOTAL PROTEIN 6.9 g/dL (6.4-8.2)
[2023-11-23] MEDS: NS 250 ML IV 250 ML IV ONE (07:27)
[2023-11-23] MEDS: PHARMACY COMMENT IV NR (07:27)
--- NOTE | 2023-11-23 11:05 | PCM.PROG ---
Progress Note Progress Note for Day of Date of Exam: 11/23/23 Subjective Subjective: Patient seen at bedside, no acute events overnight. She is currently admitted for RLE cellulitis. She continues to have redness and pain. Her swelling is better. She did have a fever of Tmax [address] also showed cellulitis, subq edema, no fluid collection. There is no open wound to culture. Blood Cx remain negative. Labs/imaging reviewed: -WBC 10.1, hemoglobin 8.4 BUN/Cr: 10/.42 -Repeat CT of the lower extremity revealed cellulitis, no gas or fluid collec tion. -Blood Cx NGTD Plan: Continue IV antibiotics Zosyn, Clindamycin and Vancomycin. Continue pain control and hydration. Keep leg elevated. Check ESR, CRP and BNP. Resume amlodipine and HCTZ. Continue other home meds, continue insulin. Replace electrolytes as per protocol. Monitor AM labs/imaging. Past Medical Family Social History Allergies: Allergies No Known Drug Allergies Allergy (Verified 11/15/23 11:26) Vital Signs and I&O's Vital Signs: Vital Signs Temperature 98.9 F Temperature 98.9 F Pulse Rate [Radial] 69 Pulse Rate [Radial] 69 Respiratory Rate 21 Respiratory Rate 21 Respiratory Rate 21 Respiratory Rate 18 Blood Pressure [Right Arm] 166/73 Blood Pressure [Right Arm] 173/69 O2 Sat by Pulse Oximetry 90 O2 Sat by Pulse Oximetry 95 Intake and Output: Intake & Output 11/20/23 11/21/23 11/22/23 11/23/23 23:59 23:59 23:59 23:59 Intake Total 2399 / 2399 2656 / 2656 2768 / 2768 1693 / 1693 Balance 2399 / 2399 2656 / 2656 2768 / 2768 1693 / 1693 Physical Exam Oriented: Normal Eyes: Normal Nose: Normal Throat: Normal Respiratory: Normal Cardiovascular: Normal Auscultation: Bowel Sounds: Normal Palpation: Normal Tenderness: Normal Skin: Red and Hot Musculoskeletal: Right (warm, erythematous, tender, no drainage or open lesions noted.) and Leg Psychiatric: Normal Mood Description: Calm Affect: Normal Speech Pattern: Clear and Appropriate Laboratory and Diagnostics 11/23/23 05:27 11/23/23 05:27 Labs: 11/15/23 12:40 Blood Blood Culture - Final 11/15/23 12:30 Blood Blood Culture - Final Laboratory WBC 10.1 X10^3/uL (3.6-10.0) H 11/23/23 05:27 RBC 2.89 X10^6/uL (3.5-5.4) L 11/23/23 05:27 Hgb 8.4 g/dL (12.0-16.0) L 11/23/23 05:27 Hct 25.1 % (36.0-47.0) L 11/23/23 05:27 MCV 86.8 fL (80.0-100.0) 11/23/23 05:27 MCH 29.2 pg (27.0-34.0) 11/23/23 05:27 MCHC 33.6 g/dL (33.0-35.0) 11/23/23 05:27 RDW 15.3 % (11.6-16.5) 11/23/23 05:27 Plt Count 467 X10^3/uL (150.0-450.0) H 11/23/23 05:27 MPV 7.6 fL (7.4-11.0) 11/23/23 05:27 Neut % (Auto) 76.4 % (42.0-75.0) H 11/23/23 05:27 Lymph % (Auto) 12.7 % (21.0-51.0) L 11/23/23 05:27 [place] % (Auto) 9.0 % (0.0-13.0) 11/23/23 05:27 Eos % (Auto) 1.4 % (0.9-2.9) 11/23/23 05:27 Baso % (Auto) 0.5 % (0.2-1.0) 11/23/23 05:27 Neut # (Auto) 7.8 x10^3/uL (2.2-4.8) H 11/23/23 05:27 Lymph # (Auto) 1.3 X10^3/uL (1.3-2.9) 11/23/23 05:27 [place] # (Auto) 0.9 x10^3/uL (0.3-0.8) H 11/23/23 05:27 Eos # (Auto) 0.1 x10^3/uL (0.0-0.2) 11/23/23 05:27 Baso # (Auto) 0.1 X10^3/uL (0.0-0.1) 11/23/23 05:27 Absolute Nucleated RBC 0.0 /100WBC 11/23/23 05:27 ESR 74 MM/HOUR (0-20) H 11/21/23 04:58 Sodium 135 mmol/L (136-145) L 11/23/23 05:27 Corrected Sodium 136 mmol/L (136-145) 11/23/23 05:27 Potassium 4.3 mmol/L (3.5-5.1) 11/23/23 05:27 Chloride 102 mmol/L (98-107) 11/23/23 05:27 Carbon Dioxide 25.7 mmol/L (21-32) 11/23/23 05:27 BUN 10 mg/dL (7-18) 11/23/23 05:27 Creatinine 1.42 mg/dL (0.55-1.02) H 11/23/23 05:27 Est GFR (MDRD) Af Amer 48 (>60) L 11/23/23 05:27 Est GFR (MDRD) Non-Af 40 (>60) L 11/23/23 05:27 Glucose 132 mg/dL (65-99) H 11/23/23 05:27 POC Glucose (mg/dL) 127 mg/dL (65-99) H 11/23/23 05:19 Calcium 8.3 mg/dL (8.5-10.1) L 11/23/23 05:27 Corrected Calcium 10.0 mg/dL (8.5-10.1) 11/23/23 05:27 Magnesium 1.8 mg/dL (2.0-2.9) L 11/23/23 05:27 Iron 9 ug/dL (50-175) L 11/16/23 05:22 TIBC 146 ug/dL (250-450) L 11/16/23 05:22 Ferritin 242 ng/mL (8-252) 11/16/23 05:22 Total Bilirubin 0.40 mg/dL (0.2-1.0) 11/23/23 05:27 AST 13 Units/L (15-37) L 11/23/23 05:27 ALT 9 Units/L (12-78) L 11/23/23 05:27 Alkaline Phosphatase 129 Units/L (46-116) H 11/23/23 05:27 C-Reactive Protein 91.40 mg/L (0-3.0) H 11/21/23 04:58 Total Protein 6.9 g/dL (6.4-8.2) 11/23/23 05:27 Albumin 1.9 g/dL (3.4-5.0) L 11/23/23 05:27 Globulin 5.0 g/dL (2.5-4.5) H 11/23/23 05:27 Albumin/Globulin Ratio 0.4 Ratio (1.1-2.1) L 11/23/23 05:27 Vitamin B12 968 pg/mL (193-986) 11/16/23 05:22 Vancomycin Trough 21.1 ug/mL (15-20) H* 11/21/23 04:58 Random Vancomycin 13.1 ug/mL 11/22/23 06:38 Blood Type B POSITIVE 11/17/23 10:59 Antibody Screen Negative 11/17/23 10:59 Crossmatch See Detail 11/17/23 10:59 Plan (1) Cellulitis of right leg: Status: Acute (2) Dehydration: Status: Acute (3) Acute kidney injury superimposed on CKD: Status: Acute (4) Diabetes: Status: Acute Qualifiers: Diabetes mellitus complication status: with hyperglycemia Diabetes mellitus termite exterminator helper insulin use: with fci use Diabetes mellitus type: type 2 Qualified Code(s): E11.65 - Type 2 diabetes mellitus with hyperglycemia; Z79.4 - half-way (current) use of insulin (5) HTN (hypertension): Status: Acute Qualifiers: Hypertension type: primary hypertension Qualified Code(s): I10 - Essential (primary) hypertension (6) Anemia of chronic disease: Status: Acute
[2023-11-23] MEDS: NORVASC TAB 10 MG PO SCH (11:46)
[2023-11-23] MEDS: HYDROCHLOROTHIAZIDE 12.5 MG CAP PO SCH (11:46)
[2023-11-24 05:52] LABS: BASOPHILS % (AUTO) 0.4 % (0.2-1.0); EOSINOPHILS # (AUTO) 0.2 x10^3/uL (0.0-0.2); EOSINOPHILS % (AUTO) 1.7 % (0.9-2.9); HEMOGLOBIN 8.3 g/dL (12.0-16.0); LYMPHOCYTES # (AUTO) 1.1 X10^3/uL (1.3-2.9); LYMPHOCYTES % (AUTO) 12.4 % (21.0-51.0); MEAN CORPUSCULAR HEMOGLOBIN 28.8 pg (27.0-34.0); MEAN PLATELET VOLUME 7.5 fL (7.4-11.0); MONOCYTES # (AUTO) 0.8 x10^3/uL (0.3-0.8); MONOCYTES % (AUTO) 9.2 % (0.0-13.0); NEUTROPHILS % (AUTO) 76.3 % (42.0-75.0); PLATELET COUNT 437 X10^3/uL (150.0-450.0); RED BLOOD COUNT 2.87 X10^6/uL (3.5-5.4); RED CELL DISTRIBUTION WIDTH 15.4 % (11.6-16.5); WHITE BLOOD COUNT 9.2 X10^3/uL (3.6-10.0)
[2023-11-24 06:08] LABS: ALBUMIN 1.8 g/dL (3.4-5.0); CALCIUM 8.3 mg/dL (8.5-10.1); CARBON DIOXIDE 24.2 mmol/L (21-32); COR CA(FOR HYPOALB) 10.1 mg/dL (8.5-10.1); CREATININE 1.46 mg/dL (0.55-1.02); MAGNESIUM 1.6 mg/dL (2.0-2.9); POTASSIUM 4.5 mmol/L (3.5-5.1); TOTAL PROTEIN 6.5 g/dL (6.4-8.2)
--- NOTE | 2023-11-24 10:12 | PCM.PROG ---
Progress Note Progress Note for Day of Date of Exam: 11/24/23 Subjective Subjective: Patient seen at bedside, no acute events overnight. She is currently admitted for RLE cellulitis. She reports leg pain similar to yesterday, hurts to ambulate. ESR and CRP elevated. BNP also elevated. She reports occasional dyspnea on exertion. No prior cardiac work up. Echo pending. Labs/imaging reviewed: -WBC 9.2, hemoglobin 8.3 BUN/Cr: 10/1.46 -Repeat CT of the lower extremity revealed cellulitis, no gas or fluid collection. -Blood Cx NGTD Plan: Continue IV antibiotics Zosyn, Clindamycin and Vancomycin. Will consult [facility] tele ID. Will give one dose of IV lasix. Continue pain control. Keep leg elevated. Echo and CXR pending. Continue amlodipine and HCTZ. Continue other home meds, continue insulin. Replace electrolytes as per protocol. Monitor AM labs/imaging. Past Medical Family Social History Allergies: Allergies No Known Drug Allergies Allergy (Verified 11/15/23 11:26) Vital Signs and I&O's Vital Signs: Vital Signs Temperature 99.3 F Temperature 98.8 F Pulse Rate [Right Brachial] 74 Pulse Rate [Right Brachial] 75 Respiratory Rate 18 Respiratory Rate 20 Blood Pressure [Right Arm] 160/71 Blood Pressure [Right Arm] 160/69 O2 Sat by Pulse Oximetry 95 O2 Sat by Pulse Oximetry 95 Intake and Output: Intake & Output 11/21/23 11/22/23 11/23/23 11/24/23 23:59 23:59 23:59 23:59 Intake Total 2656 / 2656 2768 / 2768 2462 / 3186 1040 / 1040 Balance 2656 / 2656 2768 / 2768 2462 / 3186 1040 / 1040 Physical Exam Oriented: Normal Eyes: Normal Nose: Normal Throat: Normal Respiratory: Normal Cardiovascular: Normal Auscultation: Bowel Sounds: Normal Palpation: Normal Tenderness: Normal Skin: Red and Hot Musculoskeletal: Right (warm, erythematous, tender, no drainage or open lesions noted. Limited ROM due to pain. ) and Leg Psychiatric: Normal Mood Description: Calm Affect: Normal Speech Pattern: Clear and Appropriate Laboratory and Diagnostics 11/24/23 05:14 11/24/23 05:14 Labs: 11/15/23 12:40 Blood Blood Culture - Final 11/15/23 12:30 Blood Blood Culture - Final Laboratory WBC 9.2 X10^3/uL (3.6-10.0) 11/24/23 05:14 RBC 2.87 X10^6/uL (3.5-5.4) L 11/24/23 05:14 Hgb 8.3 g/dL (12.0-16.0) L 11/24/23 05:14 Hct 25.0 % (36.0-47.0) L 11/24/23 05:14 MCV 87.0 fL (80.0-100.0) 11/24/23 05:14 MCH 28.8 pg (27.0-34.0) 11/24/23 05:14 MCHC 33.0 g/dL (33.0-35.0) 11/24/23 05:14 RDW 15.4 % (11.6-16.5) 11/24/23 05:14 Plt Count 437 X10^3/uL (150.0-450.0) 11/24/23 05:14 MPV 7.5 fL (7.4-11.0) 11/24/23 05:14 Neut % (Auto) 76.3 % (42.0-75.0) H 11/24/23 05:14 Lymph % (Auto) 12.4 % (21.0-51.0) L 11/24/23 05:14 [place] % (Auto) 9.2 % (0.0-13.0) 11/24/23 05:14 Eos % (Auto) 1.7 % (0.9-2.9) 11/24/23 05:14 Baso % (Auto) 0.4 % (0.2-1.0) 11/24/23 05:14 Neut # (Auto) 7.0 x10^3/uL (2.2-4.8) H 11/24/23 05:14 Lymph # (Auto) 1.1 X10^3/uL (1.3-2.9) L 11/24/23 05:14 [place] # (Auto) 0.8 x10^3/uL (0.3-0.8) 11/24/23 05:14 Eos # (Auto) 0.2 x10^3/uL (0.0-0.2) 11/24/23 05:14 Baso # (Auto) 0.0 X10^3/uL (0.0-0.1) 11/24/23 05:14 Absolute Nucleated RBC 0.1 /100WBC 11/24/23 05:14 ESR 85 MM/HOUR (0-20) H 11/23/23 11:05 Sodium 133 mmol/L (136-145) L 11/24/23 05:14 Corrected Sodium 135 mmol/L (136-145) L 11/24/23 05:14 Potassium 4.5 mmol/L (3.5-5.1) 11/24/23 05:14 Chloride 102 mmol/L (98-107) 11/24/23 05:14 Carbon Dioxide 24.2 mmol/L (21-32) 11/24/23 05:14 BUN 10 mg/dL (7-18) 11/24/23 05:14 Creatinine 1.46 mg/dL (0.55-1.02) H 11/24/23 05:14 Est GFR (MDRD) Af Amer 47 (>60) L 11/24/23 05:14 Est GFR (MDRD) Non-Af 39 (>60) L 11/24/23 05:14 Glucose 164 mg/dL (65-99) H 11/24/23 05:14 POC Glucose (mg/dL) 154 mg/dL (65-99) H 11/24/23 06:01 Calcium 8.3 mg/dL (8.5-10.1) L 11/24/23 05:14 Corrected Calcium 10.1 mg/dL (8.5-10.1) 11/24/23 05:14 Magnesium 1.6 mg/dL (2.0-2.9) L 11/24/23 05:14 Iron 9 ug/dL (50-175) L 11/16/23 05:22 TIBC 146 ug/dL (250-450) L 11/16/23 05:22 Ferritin 242 ng/mL (8-252) 11/16/23 05:22 Total Bilirubin 0.30 mg/dL (0.2-1.0) 11/24/23 05:14 AST 12 Units/L (15-37) L 11/24/23 05:14 ALT 9 Units/L (12-78) L 11/24/23 05:14 Alkaline Phosphatase 119 Units/L (46-116) H 11/24/23 05:14 C-Reactive Protein 76.90 mg/L (0-3.0) H 11/23/23 05:27 B-Natriuretic Peptide 319 pg/mL (0-79) H 11/23/23 05:27 Total Protein 6.5 g/dL (6.4-8.2) 11/24/23 05:14 Albumin 1.8 g/dL (3.4-5.0) L 11/24/23 05:14 Globulin 4.7 g/dL (2.5-4.5) H 11/24/23 05:14 Albumin/Globulin Ratio 0.4 Ratio (1.1-2.1) L 11/24/23 05:14 Vitamin B12 968 pg/mL (193-986) 11/16/23 05:22 Vancomycin Trough 21.1 ug/mL (15-20) H* 11/21/23 04:58 Random Vancomycin 13.1 ug/mL 11/22/23 06:38 Blood Type B POSITIVE 11/17/23 10:59 Antibody Screen Negative 11/17/23 10:59 Crossmatch See Detail 11/17/23 10:59 Plan (1) Cellulitis of right leg: Status: Acute (2) Acute kidney injury superimposed on CKD: Status: Acute (3) Diabetes: Status: Acute Qualifiers: Diabetes mellitus complication status: with hyperglycemia Diabetes mellitus assisted insulin use: with intermodal dispatcher use Diabetes mellitus type: type 2 Qualified Code(s): E11.65 - Type 2 diabetes mellitus with hyperglycemia; Z79.4 - jail (current) use of insulin (4) HTN (hypertension): Status: Acute Qualifiers: Hypertension type: primary hypertension Qualified Code(s): I10 - Essential (primary) hypertension (5) Anemia of chronic disease: Status: Acute
[2023-11-24] MEDS: LASIX IVP ONE (10:22)
[2023-11-24] MEDS: MAGNESIUM SULFATE 50% INJ VIAL 5 G in NS 500 ML IV 500 ML IV ONE (10:23)
[2023-11-24] MEDS: NEURONTIN CAP 300 MG PO SCH (13:40)
[2023-11-25 06:08] LABS: BASOPHILS % (AUTO) 0.6 % (0.2-1.0); EOSINOPHILS # (AUTO) 0.1 x10^3/uL (0.0-0.2); EOSINOPHILS % (AUTO) 1.7 % (0.9-2.9); HEMATOCRIT 25.4 % (36.0-47.0); HEMOGLOBIN 8.4 g/dL (12.0-16.0); LYMPHOCYTES # (AUTO) 1.2 X10^3/uL (1.3-2.9); LYMPHOCYTES % (AUTO) 14.6 % (21.0-51.0); MEAN CORPUSCULAR HEMOGLOBIN 28.5 pg (27.0-34.0); MEAN CORPUSCULAR HGB CONC 33.2 g/dL (33.0-35.0); MEAN CORPUSCULAR VOLUME 86.1 fL (80.0-100.0); MEAN PLATELET VOLUME 7.4 fL (7.4-11.0); MONOCYTES # (AUTO) 0.8 x10^3/uL (0.3-0.8); MONOCYTES % (AUTO) 10.6 % (0.0-13.0); NEUTROPHILS # (AUTO) 5.8 x10^3/uL (2.2-4.8); NEUTROPHILS % (AUTO) 72.5 % (42.0-75.0); PLATELET COUNT 470 X10^3/uL (150.0-450.0); RED BLOOD COUNT 2.95 X10^6/uL (3.5-5.4); RED CELL DISTRIBUTION WIDTH 15.2 % (11.6-16.5)
[2023-11-25 06:20] LABS: ALBUMIN 1.7 g/dL (3.4-5.0); CALCIUM 8.2 mg/dL (8.5-10.1); CARBON DIOXIDE 26.1 mmol/L (21-32); CREATININE 1.55 mg/dL (0.55-1.02); POTASSIUM 3.9 mmol/L (3.5-5.1); TOTAL PROTEIN 6.7 g/dL (6.4-8.2)
[2023-11-25] MEDS: NORCO 5/325 MG TAB PO SCH (10:01)
--- NOTE | 2023-11-25 11:05 | PCM.PROG ---
Progress Note Progress Note for Day of Date of Exam: 11/25/23 Subjective Subjective: Patient is currently admitted for RLE cellulitis. She is resting in bed this morning. No acute events overnight. She reports minor improvement in her leg pain, hurts to ambulate. BNP was elevated, Echo was obtained that revealed EF 60-65%. Labs/imaging reviewed: -WBC 8, hemoglobin 8.4, platelets 470, sodium 136, potassium 3.9, creatinine 1.55, glucose 186, -Repeat CT of the lower extremity revealed cellulitis, no gas or fluid collection. -Blood Cx NGTD Plan: Continue IV antibiotics Zosyn, Clindamycin and Vancomycin. Hannah ureña ID consulted, they increased gabapentin for pain and will consult [facility] Infectious Disease. Follow up recommendations. Continue pain control. Keep leg elevated. Continue amlodipine and HCTZ. Continue other home meds, continue insulin. Replace electrolytes as per protocol. Monitor AM labs/imaging. Past Medical Family Social History Allergies: Allergies No Known Drug Allergies Allergy (Verified 11/15/23 11:26) Review of Systems ROS changes noted: see HPI Vital Signs and I&O's Vital Signs: Vital Signs Temperature 98.1 F Pulse Rate [Right Brachial] 76 Respiratory Rate 20 Respiratory Rate 20 Blood Pressure [Right Arm] 165/71 O2 Sat by Pulse Oximetry 98 Intake and Output: Intake & Output 11/22/23 11/23/23 11/24/23 11/25/23 23:59 23:59 23:59 23:59 Intake Total 2768 / 2768 2462 / 3186 2306 / 2306 324 / 324 Balance 2768 / 2768 2462 / 3186 2306 / 2306 324 / 324 Physical Exam Oriented: Normal Eyes: Normal Nose: Normal Throat: Normal Respiratory: Normal Cardiovascular: Normal Auscultation: Bowel Sounds: Normal Palpation: Normal Tenderness: Normal Skin: Red and Hot Musculoskeletal: Right (warm, erythematous, tender, no drainage or open lesions noted. Limited ROM due to pain. ) and Leg Psychiatric: Normal Mood Description: Calm Affect: Normal Speech Pattern: Clear and Appropriate Laboratory and Diagnostics 11/25/23 05:38 11/25/23 05:38 Labs: 11/15/23 12:40 Blood Blood Culture - Final 11/15/23 12:30 Blood Blood Culture - Final Laboratory WBC 8.0 X10^3/uL (3.6-10.0) 11/25/23 05:38 RBC 2.95 X10^6/uL (3.5-5.4) L 11/25/23 05:38 Hgb 8.4 g/dL (12.0-16.0) L 11/25/23 05:38 Hct 25.4 % (36.0-47.0) L 11/25/23 05:38 MCV 86.1 fL (80.0-100.0) 11/25/23 05:38 MCH 28.5 pg (27.0-34.0) 11/25/23 05:38 MCHC 33.2 g/dL (33.0-35.0) 11/25/23 05:38 RDW 15.2 % (11.6-16.5) 11/25/23 05:38 Plt Count 470 X10^3/uL (150.0-450.0) H 11/25/23 05:38 MPV 7.4 fL (7.4-11.0) 11/25/23 05:38 Neut % (Auto) 72.5 % (42.0-75.0) 11/25/23 05:38 Lymph % (Auto) 14.6 % (21.0-51.0) L 11/25/23 05:38 [place] % (Auto) 10.6 % (0.0-13.0) 11/25/23 05:38 Eos % (Auto) 1.7 % (0.9-2.9) 11/25/23 05:38 Baso % (Auto) 0.6 % (0.2-1.0) 11/25/23 05:38 Neut # (Auto) 5.8 x10^3/uL (2.2-4.8) H 11/25/23 05:38 Lymph # (Auto) 1.2 X10^3/uL (1.3-2.9) L 11/25/23 05:38 [place] # (Auto) 0.8 x10^3/uL (0.3-0.8) 11/25/23 05:38 Eos # (Auto) 0.1 x10^3/uL (0.0-0.2) 11/25/23 05:38 Baso # (Auto) 0.0 X10^3/uL (0.0-0.1) 11/25/23 05:38 Absolute Nucleated RBC 0.0 /100WBC 11/25/23 05:38 ESR 85 MM/HOUR (0-20) H 11/23/23 11:05 Sodium 134 mmol/L (136-145) L 11/25/23 05:38 Corrected Sodium 136 mmol/L (136-145) 11/25/23 05:38 Potassium 3.9 mmol/L (3.5-5.1) 11/25/23 05:38 Chloride 100 mmol/L (98-107) 11/25/23 05:38 Carbon Dioxide 26.1 mmol/L (21-32) 11/25/23 05:38 BUN 9 mg/dL (7-18) 11/25/23 05:38 Creatinine 1.55 mg/dL (0.55-1.02) H 11/25/23 05:38 Est GFR (MDRD) Af Amer 44 (>60) L 11/25/23 05:38 Est GFR (MDRD) Non-Af 36 (>60) L 11/25/23 05:38 Glucose 186 mg/dL (65-99) H 11/25/23 05:38 POC Glucose (mg/dL) 173 mg/dL (65-99) H 11/25/23 06:23 Calcium 8.2 mg/dL (8.5-10.1) L 11/25/23 05:38 Corrected Calcium 10.0 mg/dL (8.5-10.1) 11/25/23 05:38 Magnesium 2.0 mg/dL (2.0-2.9) 11/25/23 05:38 Iron 9 ug/dL (50-175) L 11/16/23 05:22 TIBC 146 ug/dL (250-450) L 11/16/23 05:22 Ferritin 242 ng/mL (8-252) 11/16/23 05:22 Total Bilirubin 0.30 mg/dL (0.2-1.0) 11/25/23 05:38 AST 12 Units/L (15-37) L 11/25/23 05:38 ALT 8 Units/L (12-78) L 11/25/23 05:38 Alkaline Phosphatase 121 Units/L (46-116) H 11/25/23 05:38 C-Reactive Protein 76.90 mg/L (0-3.0) H 11/23/23 05:27 B-Natriuretic Peptide 319 pg/mL (0-79) H 11/23/23 05:27 Total Protein 6.7 g/dL (6.4-8.2) 11/25/23 05:38 Albumin 1.7 g/dL (3.4-5.0) L 11/25/23 05:38 Globulin 5.0 g/dL (2.5-4.5) H 11/25/23 05:38 Albumin/Globulin Ratio 0.3 Ratio (1.1-2.1) L 11/25/23 05:38 Vitamin B12 968 pg/mL (193-986) 11/16/23 05:22 Vancomycin Trough 21.1 ug/mL (15-20) H* 11/21/23 04:58 Random Vancomycin 8.2 ug/mL 11/25/23 05:38 Blood Type B POSITIVE 11/17/23 10:59 Antibody Screen Negative 11/17/23 10:59 Crossmatch See Detail 11/17/23 10:59 Plan (1) Cellulitis of right leg: Status: Acute (2) Acute kidney injury superimposed on CKD: Status: Acute (3) Diabetes: Status: Acute Qualifiers: Diabetes mellitus type: type 2 Diabetes mellitus detention 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
[2023-11-25] MEDS: VANCOMYCIN IV *PREMIX 1.5 G/300 ML BAG 1.5 G/300 ML PIGGYBACK IV SCH (12:14)
--- NOTE | 2023-11-25 15:18 | RAD ---
EXAM:CHEST, 1 VIEWHISTORY:elevated BNP;COMPARISON:Prior study or studies were utilized for comparison during interpretation with the most relevant dated 07/15/2019TECHNIQUE:CHEST, 1 VIEWFINDINGS:Chest:Lines and tubes: NoneMediastinum: Cardiac and mediastinal shadow is within normal limits for size and contour.Pulmonary vessels: No pulmonary vascular congestion.Lung chaudhary: No suspicious airspace opacity.Pleura: No effusion. No pneumothorax.Bones and soft tissues: No acute osseous or soft tissue abnormality.IMPRESSION:1. No acute cardiopulmonary abnormalityTHIS IS AN ELECTRONICALLY VERIFIED FINAL REPORT11/25/2023 3:15 PM - Electronically signed by Chance Menendez MD
[2023-11-26 07:17] LABS: BASOPHILS # (AUTO) 0.1 X10^3/uL (0.0-0.1); BASOPHILS % (AUTO) 0.7 % (0.2-1.0); EOSINOPHILS # (AUTO) 0.1 x10^3/uL (0.0-0.2); EOSINOPHILS % (AUTO) 1.7 % (0.9-2.9); HEMATOCRIT 26.8 % (36.0-47.0); HEMOGLOBIN 8.9 g/dL (12.0-16.0); LYMPHOCYTES # (AUTO) 1.4 X10^3/uL (1.3-2.9); MEAN CORPUSCULAR HEMOGLOBIN 28.6 pg (27.0-34.0); MEAN CORPUSCULAR HGB CONC 33.1 g/dL (33.0-35.0); MEAN CORPUSCULAR VOLUME 86.2 fL (80.0-100.0); MEAN PLATELET VOLUME 7.6 fL (7.4-11.0); MONOCYTES # (AUTO) 0.8 x10^3/uL (0.3-0.8); MONOCYTES % (AUTO) 9.4 % (0.0-13.0); NEUTROPHILS # (AUTO) 6.1 x10^3/uL (2.2-4.8); NEUTROPHILS % (AUTO) 72.2 % (42.0-75.0); PLATELET COUNT 525 X10^3/uL (150.0-450.0); WHITE BLOOD COUNT 8.5 X10^3/uL (3.6-10.0)
[2023-11-26 07:26] LABS: ALBUMIN 1.8 g/dL (3.4-5.0); CALCIUM 8.4 mg/dL (8.5-10.1); CARBON DIOXIDE 26.3 mmol/L (21-32); COR CA(FOR HYPOALB) 10.2 mg/dL (8.5-10.1); CREATININE 1.54 mg/dL (0.55-1.02); POTASSIUM 4.2 mmol/L (3.5-5.1); TOTAL PROTEIN 7.1 g/dL (6.4-8.2)
[2023-11-26] MEDS: OMNIPAQUE 350 mg/mL 100 mL BTL 100 ML ONE (11:15)
[2023-11-26] MEDS: OMNIPAQUE 350 mg/mL 50 mL BTL 50 ML ONE (11:16)
--- NOTE | 2023-11-26 14:57 | CT ---
EXAM:CTA AORTA WITH RUNOFFHISTORY:Cellulitis of the right lower extremity;COMPARISON:NoneTECHNIQUE:Multi ple CT axial images of the abdomen pelvis and lower extremity runoff were obtained before and after using IV contrast. 3D reconstructions utilizing axial MIPS imaging was performed and reviewed. Dose reduction techniques including Automated Exposure Control (AEC) and adjustment of mA and kV were utilized.Stenoses are measured using NASCET criteria.FINDINGS:Without contrast: There are calcifications in the arteries consistent with atherosclerosis. Calcified gallstones are present. Large calcifications in the pancreas could indicate chronic calcific pancreatitis.With contrast: The aorta has a normal caliber with no aneurysm, dissection, or stenosis. All 3 mesenteric vessels are patent. Single patent artery to each kidney. Common iliac and external iliac arteries are patent. Both internal iliac arteries are also patent.Right lower extremity: No significant femoropopliteal artery occlusion. Popliteal artery is patent and gives rise to posterior tibial and anterior tibial arteries which extend to the foot. Peroneal artery is not identified.Left lower extremity: There is no significant femoropopliteal artery occlusion. There is high origin of the anterior tibial artery above the knee joint surface. All 3 branches are patent. Dominant vessel posterior tibial extending into the foot. Peroneal artery to the distal calf. Patent dorsalis pedis.Body: The patient has anasarca with generalized edema. This is manifested as increased density in the subcutaneous fat and the intra-abdominal fat. This is associated with small bilateral effusions. But there is more focal and diffuse edema in the right lower extremity.Minimal compressive atelectasis in the lung bases associated with the pleural effusions. No biliary obstruction. The gallbladder has no edema around it. Renal enhancement is uniform and symmetric with no solid mass. There is no hydronephrosis or significant perirenal edema. No bowel obstruction. Small umbilical hernia contains fat.IMPRESSION:1. Atherosclerosis with no significant occlusion2. Two-vessel runoff to the right foot and three-vessel runoff to the left foot3. Anasarca with pleural effusions4. Cholelithiasis5. Findings suggesting chronic calcific pancreatitisTHIS IS AN ELECTRONICALLY VERIFIED FINAL REPORT11/26/2023 2:53 PM - Electronically signed by Emilio Hoover MD
[2023-11-26] MEDS: COLACE CAP 100 MG PO SCH (20:47)
[2023-11-27 06:48] LABS: BASOPHILS % (AUTO) 0.4 % (0.2-1.0); EOSINOPHILS # (AUTO) 0.1 x10^3/uL (0.0-0.2); EOSINOPHILS % (AUTO) 1.3 % (0.9-2.9); HEMATOCRIT 26.4 % (36.0-47.0); HEMOGLOBIN 8.8 g/dL (12.0-16.0); LYMPHOCYTES # (AUTO) 1.4 X10^3/uL (1.3-2.9); LYMPHOCYTES % (AUTO) 16.3 % (21.0-51.0); MEAN CORPUSCULAR HEMOGLOBIN 28.8 pg (27.0-34.0); MEAN CORPUSCULAR HGB CONC 33.5 g/dL (33.0-35.0); MEAN PLATELET VOLUME 7.7 fL (7.4-11.0); MONOCYTES % (AUTO) 11.3 % (0.0-13.0); NEUTROPHILS # (AUTO) 6.2 x10^3/uL (2.2-4.8); NEUTROPHILS % (AUTO) 70.7 % (42.0-75.0); PLATELET COUNT 501 X10^3/uL (150.0-450.0); RED BLOOD COUNT 3.06 X10^6/uL (3.5-5.4); WHITE BLOOD COUNT 8.7 X10^3/uL (3.6-10.0)
[2023-11-27 07:08] LABS: ALBUMIN 1.7 g/dL (3.4-5.0); CALCIUM 8.5 mg/dL (8.5-10.1); CARBON DIOXIDE 26.1 mmol/L (21-32); COR CA(FOR HYPOALB) 10.3 mg/dL (8.5-10.1); CREATININE 1.39 mg/dL (0.55-1.02)
--- NOTE | 2023-11-27 12:02 | PCM.PROG ---
Progress Note Progress Note for Day of Date of Exam: 11/26/23 Subjective Subjective: Patient is currently admitted for RLE cellulitis. This morning she is laying in bed. No acute events overnight. She does have improvement in her leg pain and on exam erythema is improving. Labs/imaging reviewed: -WBC 8.5, hemoglobin 8.9, platelets 525, sodium 135, potassium 4.2, creatinine 1.54, glucose 156, Plan: Will discontinue IV antibiotics Zosyn, Clindamycin, continue Vancomycin. Hannah SOARES consulted and [facility] Infectious Disease. Follow up recommendations. Will order CTA with runoff of Right lower extremity to evaluate vascular. Continue pain control. Keep leg elevated. Continue amlodipine and HCTZ. Continue other home meds, continue insulin. Replace electrolytes as per protocol. Monitor AM labs/imaging. Past Medical Family Social History Allergies: Allergies No Known Drug Allergies Allergy (Verified 11/15/23 11:26) Review of Systems ROS changes noted: see HPI Vital Signs and I&O's Vital Signs: Vital Signs Temperature 98.1 F Temperature 98.2 F Pulse Rate [Right Brachial] 76 Pulse Rate [Right Brachial] 87 Respiratory Rate 18 Respiratory Rate 20 Respiratory Rate 18 Respiratory Rate 16 Blood Pressure [Right Arm] 161/68 Blood Pressure [Right Arm] 144/64 O2 Sat by Pulse Oximetry 94 O2 Sat by Pulse Oximetry 96 Intake and Output: Intake & Output 11/24/23 11/25/23 11/26/23 11/27/23 23:59 23:59 23:59 23:59 Intake Total 2306 / 2306 1244 / 1244 1714 / 1714 Balance 2306 / 2306 1244 / 1244 1714 / 1714 Physical Exam Oriented: Normal Eyes: Normal Nose: Normal Throat: Normal Respiratory: Normal Cardiovascular: Normal Auscultation: Bowel Sounds: Normal Tenderness: Normal Skin: Red and Hot Musculoskeletal: Right (warm, erythematous, tender, no drainage or open lesions noted.) and Leg Psychiatric: Normal Mood Description: Calm Affect: Normal Speech Pattern: Clear and Appropriate Laboratory and Diagnostics 11/27/23 05:45 11/27/23 05:45 Labs: 11/15/23 12:40 Blood Blood Culture - Final 11/15/23 12:30 Blood Blood Culture - Final Laboratory WBC 8.7 X10^3/uL (3.6-10.0) 11/27/23 05:45 RBC 3.06 X10^6/uL (3.5-5.4) L 11/27/23 05:45 Hgb 8.8 g/dL (12.0-16.0) L 11/27/23 05:45 Hct 26.4 % (36.0-47.0) L 11/27/23 05:45 MCV 86.0 fL (80.0-100.0) 11/27/23 05:45 MCH 28.8 pg (27.0-34.0) 11/27/23 05:45 MCHC 33.5 g/dL (33.0-35.0) 11/27/23 05:45 RDW 15.0 % (11.6-16.5) 11/27/23 05:45 Plt Count 501 X10^3/uL (150.0-450.0) H 11/27/23 05:45 MPV 7.7 fL (7.4-11.0) 11/27/23 05:45 Neut % (Auto) 70.7 % (42.0-75.0) 11/27/23 05:45 Lymph % (Auto) 16.3 % (21.0-51.0) L 11/27/23 05:45 [place] % (Auto) 11.3 % (0.0-13.0) 11/27/23 05:45 Eos % (Auto) 1.3 % (0.9-2.9) 11/27/23 05:45 Baso % (Auto) 0.4 % (0.2-1.0) 11/27/23 05:45 Neut # (Auto) 6.2 x10^3/uL (2.2-4.8) H 11/27/23 05:45 Lymph # (Auto) 1.4 X10^3/uL (1.3-2.9) 11/27/23 05:45 [place] # (Auto) 1.0 x10^3/uL (0.3-0.8) H 11/27/23 05:45 Eos # (Auto) 0.1 x10^3/uL (0.0-0.2) 11/27/23 05:45 Baso # (Auto) 0.0 X10^3/uL (0.0-0.1) 11/27/23 05:45 Absolute Nucleated RBC 0.1 /100WBC 11/27/23 05:45 ESR 85 MM/HOUR (0-20) H 11/23/23 11:05 Sodium 132 mmol/L (136-145) L 11/27/23 05:45 Corrected Sodium 134 mmol/L (136-145) L 11/27/23 05:45 Potassium 4.0 mmol/L (3.5-5.1) 11/27/23 05:45 Chloride 98 mmol/L (98-107) 11/27/23 05:45 Carbon Dioxide 26.1 mmol/L (21-32) 11/27/23 05:45 BUN 10 mg/dL (7-18) 11/27/23 05:45 Creatinine 1.39 mg/dL (0.55-1.02) H 11/27/23 05:45 Est GFR (MDRD) Af Amer 49 (>60) L 11/27/23 05:45 Est GFR (MDRD) Non-Af 41 (>60) L 11/27/23 05:45 Glucose 179 mg/dL (65-99) H 11/27/23 05:45 POC Glucose (mg/dL) 185 mg/dL (65-99) H 11/27/23 10:29 Calcium 8.5 mg/dL (8.5-10.1) 11/27/23 05:45 Corrected Calcium 10.3 mg/dL (8.5-10.1) H 11/27/23 05:45 Magnesium 2.0 mg/dL (2.0-2.9) 11/25/23 05:38 Iron 9 ug/dL (50-175) L 11/16/23 05:22 TIBC 146 ug/dL (250-450) L 11/16/23 05:22 Ferritin 242 ng/mL (8-252) 11/16/23 05:22 Total Bilirubin 0.20 mg/dL (0.2-1.0) 11/27/23 05:45 AST 11 Units/L (15-37) L 11/27/23 05:45 ALT 7 Units/L (12-78) L 11/27/23 05:45 Alkaline Phosphatase 120 Units/L (46-116) H 11/27/23 05:45 C-Reactive Protein 76.90 mg/L (0-3.0) H 11/23/23 05:27 B-Natriuretic Peptide 319 pg/mL (0-79) H 11/23/23 05:27 Total Protein 7.0 g/dL (6.4-8.2) 11/27/23 05:45 Albumin 1.7 g/dL (3.4-5.0) L 11/27/23 05:45 Globulin 5.3 g/dL (2.5-4.5) H 11/27/23 05:45 Albumin/Globulin Ratio 0.3 Ratio (1.1-2.1) L 11/27/23 05:45 Vitamin B12 968 pg/mL (193-986) 11/16/23 05:22 Vancomycin Trough 21.1 ug/mL (15-20) H* 11/21/23 04:58 Random Vancomycin 15.5 ug/mL 11/26/23 06:20 Blood Type B POSITIVE 11/17/23 10:59 Antibody Screen Negative 11/17/23 10:59 Crossmatch See Detail 11/17/23 10:59 Plan (1) Cellulitis of right leg: Status: Acute (2) Acute kidney injury superimposed on CKD: Status: Acute (3) Diabetes: Status: Acute Qualifiers: Diabetes mellitus type: type 2 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
--- NOTE | 2023-11-27 13:30 | PCM.PROG ---
Progress Note Progress Note for Day of Date of Exam: 11/27/23 Subjective Subjective: Patient is currently admitted for RLE cellulitis. She is in bed this morning. No acute events overnight. She continues to report improvement in her leg pain and on exam erythema is improving. Labs/imaging reviewed: -WBC 8.7, hemoglobin 8.8, platelets 501, sodium 132, potassium 4.0, creatinine 0.81, glucose 90, -CTA RLE no significant arterial stenosis Plan: Continue Vancomycin. Hannah SOARES consulted and [facility] Infectious Disease. Follow up recommendations. Continue pain control. Keep leg elevated. Continue amlodipine and HCTZ. Continue other home meds, continue insulin. Replace electrolytes as per protocol. Will possibly discharge tomorrow with Zyvox. Monitor AM labs/imaging. Past Medical Family Social History Allergies: Allergies No Known Drug Allergies Allergy (Verified 11/15/23 11:26) Review of Systems ROS changes noted: see HPI Vital Signs and I&O's Vital Signs: Vital Signs Temperature 97.2 F Temperature 98.1 F Pulse Rate [Right Brachial] 73 Pulse Rate [Right Brachial] 76 Respiratory Rate 17 Respiratory Rate 18 Respiratory Rate 20 Respiratory Rate 18 Blood Pressure [Right Arm] 140/63 Blood Pressure [Right Arm] 161/68 O2 Sat by Pulse Oximetry 92 O2 Sat by Pulse Oximetry 94 Intake and Output: Intake & Output 11/24/23 11/25/23 11/26/23 11/27/23 23:59 23:59 23:59 23:59 Intake Total 2306 / 2306 1244 / 1244 1714 / 1714 20 / 20 Balance 2306 / 2306 1244 / 1244 1714 / 1714 Physical Exam Oriented: Normal Eyes: Normal Nose: Normal Throat: Normal Respiratory: Normal Cardiovascular: Normal Auscultation: Bowel Sounds: Normal Tenderness: Normal Skin: Red and Hot Musculoskeletal: Right (warm, erythematous, tender, no drainage or open lesions noted.) and Leg Psychiatric: Normal Mood Description: Calm Affect: Normal Speech Pattern: Clear and Appropriate Laboratory and Diagnostics 11/27/23 05:45 11/27/23 05:45 Labs: 11/15/23 12:40 Blood Blood Culture - Final 11/15/23 12:30 Blood Blood Culture - Final Laboratory WBC 8.7 X10^3/uL (3.6-10.0) 11/27/23 05:45 RBC 3.06 X10^6/uL (3.5-5.4) L 11/27/23 05:45 Hgb 8.8 g/dL (12.0-16.0) L 11/27/23 05:45 Hct 26.4 % (36.0-47.0) L 11/27/23 05:45 MCV 86.0 fL (80.0-100.0) 11/27/23 05:45 MCH 28.8 pg (27.0-34.0) 11/27/23 05:45 MCHC 33.5 g/dL (33.0-35.0) 11/27/23 05:45 RDW 15.0 % (11.6-16.5) 11/27/23 05:45 Plt Count 501 X10^3/uL (150.0-450.0) H 11/27/23 05:45 MPV 7.7 fL (7.4-11.0) 11/27/23 05:45 Neut % (Auto) 70.7 % (42.0-75.0) 11/27/23 05:45 Lymph % (Auto) 16.3 % (21.0-51.0) L 11/27/23 05:45 [place] % (Auto) 11.3 % (0.0-13.0) 11/27/23 05:45 Eos % (Auto) 1.3 % (0.9-2.9) 11/27/23 05:45 Baso % (Auto) 0.4 % (0.2-1.0) 11/27/23 05:45 Neut # (Auto) 6.2 x10^3/uL (2.2-4.8) H 11/27/23 05:45 Lymph # (Auto) 1.4 X10^3/uL (1.3-2.9) 11/27/23 05:45 [place] # (Auto) 1.0 x10^3/uL (0.3-0.8) H 11/27/23 05:45 Eos # (Auto) 0.1 x10^3/uL (0.0-0.2) 11/27/23 05:45 Baso # (Auto) 0.0 X10^3/uL (0.0-0.1) 11/27/23 05:45 Absolute Nucleated RBC 0.1 /100WBC 11/27/23 05:45 ESR 85 MM/HOUR (0-20) H 11/23/23 11:05 Sodium 132 mmol/L (136-145) L 11/27/23 05:45 Corrected Sodium 134 mmol/L (136-145) L 11/27/23 05:45 Potassium 4.0 mmol/L (3.5-5.1) 11/27/23 05:45 Chloride 98 mmol/L (98-107) 11/27/23 05:45 Carbon Dioxide 26.1 mmol/L (21-32) 11/27/23 05:45 BUN 10 mg/dL (7-18) 11/27/23 05:45 Creatinine 1.39 mg/dL (0.55-1.02) H 11/27/23 05:45 Est GFR (MDRD) Af Amer 49 (>60) L 11/27/23 05:45 Est GFR (MDRD) Non-Af 41 (>60) L 11/27/23 05:45 Glucose 179 mg/dL (65-99) H 11/27/23 05:45 POC Glucose (mg/dL) 185 mg/dL (65-99) H 11/27/23 10:29 Calcium 8.5 mg/dL (8.5-10.1) 11/27/23 05:45 Corrected Calcium 10.3 mg/dL (8.5-10.1) H 11/27/23 05:45 Magnesium 2.0 mg/dL (2.0-2.9) 11/25/23 05:38 Iron 9 ug/dL (50-175) L 11/16/23 05:22 TIBC 146 ug/dL (250-450) L 11/16/23 05:22 Ferritin 242 ng/mL (8-252) 11/16/23 05:22 Total Bilirubin 0.20 mg/dL (0.2-1.0) 11/27/23 05:45 AST 11 Units/L (15-37) L 11/27/23 05:45 ALT 7 Units/L (12-78) L 11/27/23 05:45 Alkaline Phosphatase 120 Units/L (46-116) H 11/27/23 05:45 C-Reactive Protein 76.90 mg/L (0-3.0) H 11/23/23 05:27 B-Natriuretic Peptide 319 pg/mL (0-79) H 11/23/23 05:27 Total Protein 7.0 g/dL (6.4-8.2) 11/27/23 05:45 Albumin 1.7 g/dL (3.4-5.0) L 11/27/23 05:45 Globulin 5.3 g/dL (2.5-4.5) H 11/27/23 05:45 Albumin/Globulin Ratio 0.3 Ratio (1.1-2.1) L 11/27/23 05:45 Vitamin B12 968 pg/mL (193-986) 11/16/23 05:22 Vancomycin Trough 21.1 ug/mL (15-20) H* 11/21/23 04:58 Random Vancomycin 15.5 ug/mL 11/26/23 06:20 Blood Type B POSITIVE 11/17/23 10:59 Antibody Screen Negative 11/17/23 10:59 Crossmatch See Detail 11/17/23 10:59 Plan (1) Cellulitis of right leg: Status: Acute (2) Acute kidney injury superimposed on CKD: Status: Acute (3) Diabetes: Status: Acute Qualifiers: Diabetes mellitus type: type 2 Diabetes mellitus mcc insulin use: with mcc use Diabetes mellitus complication status: with hyperglycemia Qualified Code(s): E11.65 - Type 2 diabetes mellitus with hyperglycemia; Z79.4 - intermediate (current) use of insulin (4) HTN (hypertension): Status: Acute Qualifiers: Hypertension type: primary hypertension Qualified Code(s): I10 - Essent ial (primary) hypertension (5) Anemia of chronic disease: Status: Acute
[2023-11-28 05:57] LABS: BASOPHILS # (AUTO) 0.1 X10^3/uL (0.0-0.1); BASOPHILS % (AUTO) 0.7 % (0.2-1.0); EOSINOPHILS # (AUTO) 0.2 x10^3/uL (0.0-0.2); EOSINOPHILS % (AUTO) 1.9 % (0.9-2.9); LYMPHOCYTES # (AUTO) 1.3 X10^3/uL (1.3-2.9); LYMPHOCYTES % (AUTO) 14.8 % (21.0-51.0); MEAN CORPUSCULAR HEMOGLOBIN 28.7 pg (27.0-34.0); MEAN CORPUSCULAR HGB CONC 33.4 g/dL (33.0-35.0); MEAN PLATELET VOLUME 7.3 fL (7.4-11.0); MONOCYTES # (AUTO) 0.9 x10^3/uL (0.3-0.8); MONOCYTES % (AUTO) 9.6 % (0.0-13.0); NEUTROPHILS # (AUTO) 6.5 x10^3/uL (2.2-4.8); PLATELET COUNT 536 X10^3/uL (150.0-450.0); RED BLOOD COUNT 3.14 X10^6/uL (3.5-5.4); RED CELL DISTRIBUTION WIDTH 14.9 % (11.6-16.5); WHITE BLOOD COUNT 8.9 X10^3/uL (3.6-10.0)
[2023-11-28 06:18] LABS: ALBUMIN 1.9 g/dL (3.4-5.0); CALCIUM 8.7 mg/dL (8.5-10.1); CARBON DIOXIDE 25.2 mmol/L (21-32); COR CA(FOR HYPOALB) 10.4 mg/dL (8.5-10.1); CREATININE 1.58 mg/dL (0.55-1.02); TOTAL PROTEIN 7.4 g/dL (6.4-8.2)
[2023-11-28 07:38] VITALS: BP 169/81; PULSE 93; TEMP 99.5; O2SAT 94
[2023-11-28 08:47] VITALS: RESP 20
--- NOTE | 2023-11-28 13:08 | W.DIS.FURT ---
Summary of Discharge Discharge Summary of Date Date of Exam: 11/28/23 Admission Date Date of Admission: 11/15/23 Admission Diagnosis Hospital Course: Patient is a 63 year old female that was admitted for RLE cellulitis. Her hospital/treatment course included IV antibiotics Vancomycin, Zosyn, and Clindamycin that was gradually de-escalated to just Vancomycin. Pt responded well to treatments and symptoms, erythema, and edema gradually improved. On discharge symptoms have significantly improved. Pt discharged in stable condition. Rx Zyvox x 10 days. Instructed to follow up with pcp in 10 days. Vital Signs: Vital Signs (72 hours) 11/25/23 12:00 11/25/23 16:00 11/25/23 19:00 Temperature 98.2 F 98.7 F Pulse Rate [Right Brachial] 66 76 Respiratory Rate 19 18 Blood Pressure [Right Arm] 164/70 142/63 O2 Sat by Pulse Oximetry 93 L 94 L Oxygen Delivery Method Room Air Room Air Room Air 11/25/23 20:50 11/25/23 20:00 11/25/23 21:50 Temperature 98.4 F Pulse Rate [Right Brachial] 78 Respiratory Rate 18 22 18 Blood Pressure [Right Arm] 154/69 O2 Sat by Pulse Oximetry 95 Oxygen Delivery Method Room Air 11/26/23 00:00 11/26/23 04:00 11/26/23 08:54 Temperature 99.2 F 98.5 F Pulse Rate [Right Brachial] 67 86 Respiratory Rate 18 19 19 Blood Pressure [Right Arm] 138/64 146/85 O2 Sat by Pulse Oximetry 95 96 Oxygen Delivery Method Room Air Room Air 11/26/23 09:54 11/26/23 10:20 11/26/23 08:00 Temperature 98.6 F Pulse Rate [Right Brachial] 80 Respiratory Rate 20 18 Blood Pressure [Right Arm] 169/72 O2 Sat by Pulse Oximetry 96 Oxygen Delivery Method Room Air Room Air 11/26/23 12:00 11/26/23 16:00 11/26/23 20:00 Temperature 98.2 F 98.6 F 98.3 F Pulse Rate [Right Brachial] 82 86 78 Respiratory Rate 18 16 16 Blood Pressure [Right Arm] 163/71 159/69 150/71 O2 Sat by Pulse Oximetry 95 94 L 95 Oxygen Delivery Method Room Air Room Air Room Air 11/26/23 20:37 11/26/23 19:00 11/27/23 00:00 Temperature 98.0 F Pulse Rate [Right Brachial] 66 Respiratory Rate 16 16 Blood Pressure [Right Arm] 138/64 O2 Sat by Pulse Oximetry 94 L Oxygen Delivery Method Room Air Room Air 11/26/23 21:37 11/27/23 04:00 11/27/23 08:51 Temperature 98.2 F Pulse Rate [Right Brachial] 87 Respiratory Rate 18 16 20 Blood Pressure [Right Arm] 144/64 O2 Sat by Pulse Oximetry 96 Oxygen Delivery Method Room Air 11/27/23 08:00 11/27/23 07:00 11/27/23 09:51 Temperature 98.1 F Pulse Rate [Right Brachial] 76 Respiratory Rate 18 18 Blood Pressure [Right Arm] 161/68 O2 Sat by Pulse Oximetry 94 L Oxygen Delivery Method Room Air Room Air 11/27/23 12:00 11/27/23 16:00 11/27/23 21:26 Temperature 97.2 F L 99 F Pulse Rate [Right Brachial] 73 82 Respiratory Rate 17 20 19 Blood Pressure [Right Arm] 140/63 149/66 O2 Sat by Pulse Oximetry 92 L 98 Oxygen Delivery Method Room Air Room Air 11/27/23 19:00 11/27/23 20:00 11/27/23 22:26 Temperature 99.9 F H Pulse Rate [Right Brachial] 91 H Respiratory Rate 19 19 Blood Pressure [Right Arm] 151/68 O2 Sat by Pulse Oximetry 94 L Oxygen Delivery Method Room Air Room Air 11/28/23 00:00 11/28/23 04:00 11/28/23 07:38 Temperature 99.1 F 99.2 F 99.5 F Pulse Rate [Right Brachial] 73 84 93 H Respiratory Rate 19 21 22 Blood Pressure [Right Arm] 143/65 163/72 169/81 O2 Sat by Pulse Oximetry 94 L 95 94 L Oxygen Delivery Method Room Air Room Air Room Air 11/28/23 08:47 11/28/23 07:00 11/28/23 09:47 Temperature Pulse Rate [Right Brachial] Respiratory Rate 20 20 Blood Pressure [Right Arm] O2 Sat by Pulse Oximetry Oxygen Delivery Method Room Air Labs: Laboratory Last Values WBC 8.9 X10^3/uL (3.6-10.0) 11/28/23 05:35 RBC 3.14 X10^6/uL (3.5-5.4) L 11/28/23 05:35 Hgb 9.0 g/dL (12.0-16.0) L 11/28/23 05:35 Hct 27.0 % (36.0-47.0) L 11/28/23 05:35 MCV 86.0 fL (80.0-100.0) 11/28/23 05:35 MCH 28.7 pg (27.0-34.0) 11/28/23 05:35 MCHC 33.4 g/dL (33.0-35.0) 11/28/23 05:35 RDW 14.9 % (11.6-16.5) 11/28/23 05:35 Plt Count 536 X10^3/uL (150.0-450.0) H 11/28/23 05:35 MPV 7.3 fL (7.4-11.0) L 11/28/23 05:35 Neut % (Auto) 73.0 % (42.0-75.0) 11/28/23 05:35 Lymph % (Auto) 14.8 % (21.0-51.0) L 11/28/23 05:35 [place] % (Auto) 9.6 % (0.0-13.0) 11/28/23 05:35 Eos % (Auto) 1.9 % (0.9-2.9) 11/28/23 05:35 Baso % (Auto) 0.7 % (0.2-1.0) 11/28/23 05:35 Neut # (Auto) 6.5 x10^3/uL (2.2-4.8) H 11/28/23 05:35 Lymph # (Auto) 1.3 X10^3/uL (1.3-2.9) 11/28/23 05:35 [place] # (Auto) 0.9 x10^3/uL (0.3-0.8) H 11/28/23 05:35 Eos # (Auto) 0.2 x10^3/uL (0.0-0.2) 11/28/23 05:35 Baso # (Auto) 0.1 X10^3/uL (0.0-0.1) 11/28/23 05:35 Absolute Nucleated RBC 0.0 /100WBC 11/28/23 05:35 ESR 85 MM/HOUR (0-20) H 11/23/23 11:05 Sodium 131 mmol/L (136-145) L 11/28/23 05:35 Corrected Sodium 132 mmol/L (136-145) L 11/28/23 05:35 Potassium 4.0 mmol/L (3.5-5.1) 11/28/23 05:35 Chloride 98 mmol/L (98-107) 11/28/23 05:35 Carbon Dioxide 25.2 mmol/L (21-32) 11/28/23 05:35 BUN 11 mg/dL (7-18) 11/28/23 05:35 Creatinine 1.58 mg/dL (0.55-1.02) H 11/28/23 05:35 Est GFR (MDRD) Af Amer 43 (>60) L 11/28/23 05:35 Est GFR (MDRD) Non-Af 35 (>60) L 11/28/23 05:35 Glucose 157 mg/dL (65-99) H 11/28/23 05:35 POC Glucose (mg/dL) 146 mg/dL (65-99) H 11/28/23 05:41 Calcium 8.7 mg/dL (8.5-10.1) 11/28/23 05:35 Corrected Calcium 10.4 mg/dL (8.5-10.1) H 11/28/23 05:35 Magnesium 2.0 mg/dL (2.0-2.9) 11/25/23 05:38 Iron 9 ug/dL (50-175) L 11/16/23 05:22 TIBC 146 ug/dL (250-450) L 11/16/23 05:22 Ferritin 242 ng/mL (8-252) 11/16/23 05:22 Total Bilirubin 0.30 mg/dL (0.2-1.0) 11/28/23 05:35 AST 13 Units/L (15-37) L 11/28/23 05:35 ALT 9 Units/L (12-78) L 11/28/23 05:35 Alkaline Phosphatase 121 Units/L (46-116) H 11/28/23 05:35 C-Reactive Protein 76.90 mg/L (0-3.0) H 11/23/23 05:27 B-Natriuretic Peptide 319 pg/mL (0-79) H 11/23/23 05:27 Total Protein 7.4 g/dL (6.4-8.2) 11/28/23 05:35 Albumin 1.9 g/dL (3.4-5.0) L 11/28/23 05:35 Globulin 5.5 g/dL (2.5-4.5) H 11/28/23 05:35 Albumin/Globulin Ratio 0.3 Ratio (1.1-2.1) L 11/28/23 05:35 Vitamin B12 968 pg/mL (193-986) 11/16/23 05:22 Vancomycin Trough 21.1 ug/mL (15-20) H* 11/21/23 04:58 Random Vancomycin 15.5 ug/mL 11/26/23 06:20 Blood Type B POSITIVE 11/17/23 10:59 Antibody Screen Negative 11/17/23 10:59 Crossmatch See Detail 11/17/23 10:59 Reason For Visit: CELLULITIS RLE, LEG PAIN Discharge Date Discharge Date: 11/28/23 Discharge Diagnosis All Active Problems (Updated 11/17/23 @ 10:29 by Trupti Barrientos) Acute kidney injury superimposed on CKD (Acute) Anemia of chronic disease (Acute) HTN (hypertension) (Acute) Dehydration (Acute) Diabetes (Acute) Cellulitis of right leg (Acute) Hypoglycemic episode in patient with diabetes mellitus (Acute) Hypoxia (Acute) Dyspnea (Acute) Hyponatremia (Acute) COVID-19 (Acute) Plan of Treatment: Continue with present treatment and follow up plan. Pt is to keep follow up appointment as instructed and take medications as ordered. Discharge Medications Discharge Medications: No Known Drug Allergies Allergy (Verified 11/15/23 11:26) CONTINUE taking the following medications amlodipine 10 mg tablet 10 mg PO QDAY 11/15/23 [History] carvedilol 6.25 mg tablet 6.25 mg PO BID 11/15/23 [History] insulin detemir U-100 100 unit/mL subcutaneous solution 15 unit subcut QPM 11/15/23 [History] sitagliptin phosphate 50 mg tablet (Januvia) 50 mg PO QDAY 11/15/23 [History] Discharge Plan Discharge Plan Hospital Course: Patient is a 63 year old female that was admitted for RLE cellulitis. Her hospital/treatment course included IV antibiotics Vancomycin, Zosyn, and Clindamycin that was gradually de-escalated to just Vancomycin. Pt responded well to treatments and symptoms, erythema, and edema gradually improved. On discharge symptoms have significantly improved. Pt discharged in stable condition. Rx Zyvox x 10 days. Instructed to follow up with pcp in 10 days. Patient Disposition: 01 HOME, SELF-CARE Condition: Stable Health Concerns: Post Hospitalization: new medications and changes needed to prevent readmission or further decline. Pt educated and given instructions on all concerns. Plan of Treatment: Continue with present treatment and follow up plan. Pt is to keep follow up appointment as instructed and take medications as ordered. Prescriptions: New hydrocodone-acetaminophen 5-325 mg Tablet 1 tab PO Q8H MDD 3 PRNQty: 30 0RF linezolid [Zyvox] 600 mg Tablet 600 mg PO Q12H Qty: 20 0RF Continued atorvastatin 40 mg tablet 40 mg PO QDAY losartan 100 mg tablet 100 mg PO QDAY Levemir U-100 Insulin 100 unit/mL solution 10 unit SUBCUT QAM Patient Comments: [NO ORIGINAL SIG] dapagliflozin propanediol [Farxiga] 10 mg tablet 10 mg PO QDAY carvedilol 6.25 mg tablet 6.25 mg PO BID amlodipine 10 mg tablet 10 mg PO QDAY Januvia 50 mg tablet 50 mg PO QDAY insulin detemir U-100 100 unit/mL Solution 15 unit SUBCUT QPM pioglitazone 45 mg Tablet 45 mg PO DAILY hydrochlorothiazide 12.5 mg Tablet 12.5 mg PO DAILY Follow ups/Referrals Follow ups/Referrals: N[facility],None [Primary Care Provider] - 3 days Instructions Instructions: Cellulitis, Adult, [facility]low-vp-[id number] Stand Alone Forms: Excuse From Work or School, Post Hospital Follow Up Care
--- NOTE | 2023-11-30 17:39 | DR.PROGNOT ---
HOSPITAL PROGRESS NOTE Progress Note for Day of: Progress Note Date: 11/28/23 Chief Complaint Chief Complaint: Past Medical Family Social History Past Med/Fam/Surg Hx: No changes since H&P Allergies: Allergies No Known Drug Allergies Allergy (Verified 11/15/23 11:26) Review Of Systems Changes in ROS: see HPI Vital Signs Vital Signs: Vital Signs Temperature 99.5 F Temperature 99.2 F Pulse Rate [Right Brachial] 93 Pulse Rate [Right Brachial] 84 Respiratory Rate 20 Respiratory Rate 22 Respiratory Rate 21 Blood Pressure [Right Arm] 169/81 Blood Pressure [Right Arm] 163/72 O2 Sat by Pulse Oximetry 94 O2 Sat by Pulse Oximetry 95 Physical Exam Oriented: Normal Eyes: Normal Nose: Normal Throat: Normal Respiratory: Normal Cardiovascular: Normal GI:Auscultation: Normal GI:Palpation: Normal GI: Tenderness: Normal Skin: Red and Hot Musculoskeletal: Right (warm, erythematous, tender, no drainage or open lesions noted.) and Leg Psychiatric: Normal Mood Description: Calm Affect: Normal Speech Pattern: Clear and Appropriate Laboratory and Diagnostics 11/28/23 05:35 11/28/23 05:35 Labs: 11/15/23 12:40 Blood Blood Culture - Final 11/15/23 12:30 Blood Blood Culture - Final Laboratory WBC 8.9 X10^3/uL (3.6-10.0) 11/28/23 05:35 RBC 3.14 X10^6/uL (3.5-5.4) L 11/28/23 05:35 Hgb 9.0 g/dL (12.0-16.0) L 11/28/23 05:35 Hct 27.0 % (36.0-47.0) L 11/28/23 05:35 MCV 86.0 fL (80.0-100.0) 11/28/23 05:35 MCH 28.7 pg (27.0-34.0) 11/28/23 05:35 MCHC 33.4 g/dL (33.0-35.0) 11/28/23 05:35 RDW 14.9 % (11.6-16.5) 11/28/23 05:35 Plt Count 536 X10^3/uL (150.0-450.0) H 11/28/23 05:35 MPV 7.3 fL (7.4-11.0) L 11/28/23 05:35 Neut % (Auto) 73.0 % (42.0-75.0) 11/28/23 05:35 Lymph % (Auto) 14.8 % (21.0-51.0) L 11/28/23 05:35 Howard % (Auto) 9.6 % (0.0-13.0) 11/28/23 05:35 Eos % (Auto) 1.9 % (0.9-2.9) 11/28/23 05:35 Baso % (Auto) 0.7 % (0.2-1.0) 11/28/23 05:35 Neut # (Auto) 6.5 x10^3/uL (2.2-4.8) H 11/28/23 05:35 Lymph # (Auto) 1.3 X10^3/uL (1.3-2.9) 11/28/23 05:35 Howard # (Auto) 0.9 x10^3/uL (0.3-0.8) H 11/28/23 05:35 Eos # (Auto) 0.2 x10^3/uL (0.0-0.2) 11/28/23 05:35 Baso # (Auto) 0.1 X10^3/uL (0.0-0.1) 11/28/23 05:35 Absolute Nucleated RBC 0.0 /100WBC 11/28/23 05:35 ESR 85 MM/HOUR (0-20) H 11/23/23 11:05 Sodium 131 mmol/L (136-145) L 11/28/23 05:35 Corrected Sodium 132 mmol/L (136-145) L 11/28/23 05:35 Potassium 4.0 mmol/L (3.5-5.1) 11/28/23 05:35 Chloride 98 mmol/L (98-107) 11/28/23 05:35 Carbon Dioxide 25.2 mmol/L (21-32) 11/28/23 05:35 BUN 11 mg/dL (7-18) 11/28/23 05:35 Creatinine 1.58 mg/dL (0.55-1.02) H 11/28/23 05:35 Est GFR (MDRD) Af Amer 43 (>60) L 11/28/23 05:35 Est GFR (MDRD) Non-Af 35 (>60) L 11/28/23 05:35 Glucose 157 mg/dL (65-99) H 11/28/23 05:35 POC Glucose (mg/dL) 146 mg/dL (65-99) H 11/28/23 05:41 Calcium 8.7 mg/dL (8.5-10.1) 11/28/23 05:35 Corrected Calcium 10.4 mg/dL (8.5-10.1) H 11/28/23 05:35 Magnesium 2.0 mg/dL (2.0-2.9) 11/25/23 05:38 Iron 9 ug/dL (50-175) L 11/16/23 05:22 TIBC 146 ug/dL (250-450) L 11/16/23 05:22 Ferritin 242 ng/mL (8-252) 11/16/23 05:22 Total Bilirubin 0.30 mg/dL (0.2-1.0) 11/28/23 05:35 AST 13 Units/L (15-37) L 11/28/23 05:35 ALT 9 Units/L (12-78) L 11/28/23 05:35 Alkaline Phosphatase 121 Units/L (46-116) H 11/28/23 05:35 C-Reactive Protein 76.90 mg/L (0-3.0) H 11/23/23 05:27 B-Natriuretic Peptide 319 pg/mL (0-79) H 11/23/23 05:27 Total Protein 7.4 g/dL (6.4-8.2) 11/28/23 05:35 Albumin 1.9 g/dL (3.4-5.0) L 11/28/23 05:35 Globulin 5.5 g/dL (2.5-4.5) H 11/28/23 05:35 Albumin/Globulin Ratio 0.3 Ratio (1.1-2.1) L 11/28/23 05:35 Vitamin B12 968 pg/mL (193-986) 11/16/23 05:22 Vancomycin Trough 21.1 ug/mL (15-20) H* 11/21/23 04:58 Random Vancomycin 15.5 ug/mL 11/26/23 06:20 Blood Type B POSITIVE 11/17/23 10:59 Antibody Screen Negative 11/17/23 10:59 Crossmatch See Detail 11/17/23 10:59
[2023-12-01] MEDS ORDERED: PHARMACY COMMENT IV NR (19:00)
== END 2023-11-28 11:40 | disposition home or self-care (01) | DRG 603 ==
LOC: ER 11:25 → MED/SURG 11:25 → OBSVTOIN 18:26 → MED/SURG 18:45
PROVIDERS: ADMIT Family Medicine; ATTEND Family Medicine